=== PATIENT | male | born 1965 | race Caucasian/White ===

== ENCOUNTER 2020-01-16 13:48 | Outpatient (REF) | payer OTHER, SELFPAY ==
[2020-01-16 17:28] LABS: Influenza A PCR NEGATIVE (Negative); Influenza B PCR NEGATIVE (Negative); Resp Syncy Virus RNA Qual PCR NEGATIVE (Negative); SARS COV2 PCR INHOUSE POSITIVE (Negative)
== END 2020-01-16 13:49 | disposition home or self-care (01) ==
LOC: HO.LAB 13:48
PROVIDERS: Visit Provider Hospitalist
DX: B34.9 Viral infection, unspecified (principal)
CPT/HCPCS: 0241U

== ENCOUNTER 2020-11-29 13:38 | Outpatient (REF) | payer OTHER, SELFPAY ==
--- NOTE | ~2020-11-29 | CT_ITS ---
EXAMINATION: CT CHEST WITHOUT CONTRAST CLINICAL INFORMATION: History of shortness of breath. COMPARISON: None TECHNIQUE: Multidetector volumetric CT imaging of the chest was done. Axial MIP volume rendering provided. Sagittal and coronal reformatted images were obtained. This CT examination was performed using dose optimization techniques as appropriate, variously including the following: *Automated exposure control *Adjustment of mA and/or kV according to patient size (this includes techniques or standardized protocols for targeted exams where dose is matched to indication/reason for exam; i.e. extremities or head) *Use of iterative reconstruction technique DLP: 225 mGy-cm FINDINGS: LUNGS AND PLEURA: Trachea and central airways are widely patent and normal in caliber. No endobronchial nodule, mucous plugging or bronchiectasis. No interstitial or emphysematous lung disease. No pulmonary edema, consolidation or pleural effusion. Small solid, noncalcified nodule of < 0.3 cm average diameter is present in the lateral segment of the right middle lobe (image 299, series 7). Also, there is a small noncalcified nodular focus of approximately 0.2 cm average diameter in the left upper lobe (image 250, series 7). Based on Fleischner Society guidelines, chest CT follow-up is not recommended in a low-risk patient and is considered optional at 12 months in a high risk patient. CARDIOVASCULAR: The heart size is normal. No pericardial effusion. There is atherosclerotic calcification of coronary arteries. The pulmonary arteries and thoracic aorta are normal in caliber. No pericardial effusion. MEDIASTINUM AND LOWER NECK: Small sliding-type hiatal hernia. No mediastinal mass. Thyroid gland is unremarkable. LYMPHATICS: No axillary or internal mammary lymphadenopathy. No pathologic sized mediastinal or hilar lymph nodes. UPPER ABDOMEN: Mild, diffuse steatosis of the liver. Adrenal glands are normal. There is atrophy, partial fatty replacement of the pancreas. SKELETAL AND CHEST WALL: Multilevel osteophyte and/or enthesophyte formation of the spine. No suspicious bone lesions. CT/CT chest wo con IMPRESSION: * No specific source of shortness of breath is detected. No imaging evidence of pneumonia. No interstitial or emphysematous lung disease. * There are two small pulmonary nodules of < 0.3 cm average diameter. Chest CT follow-up is not recommended in a low-risk patient and may be considered optional at 12 months in a high risk patient. * Coronary artery atherosclerotic calcification is present (predominantly noted in the left anterior descending coronary artery). * Small sliding-type hiatal hernia of the stomach. * Diffuse hepatic steatosis.
== END 2020-11-29 13:39 | disposition home or self-care (01) ==
LOC: HO.CT 13:38
PROVIDERS: PCP Nurse Practitioner Family; Visit Provider Nurse Practitioner Family
DX: R06.02 Shortness of breath (principal); R06.00 Dyspnea, unspecified; Z86.16 Personal history of COVID-19
CPT/HCPCS: 71250

== ENCOUNTER → 2020-12-11 15:26 | Outpatient (BNVA) | payer OTHER, SELFPAY | PROVIDERS: PCP Nurse Practitioner Family; Visit Provider Internal Medicine ==

== ENCOUNTER 2021-01-01 13:56 | Outpatient (REF) | payer OTHER, SELFPAY ==
--- NOTE | 2021-01-01 17:31 | PFT_ITS ---
FLOWS: FEV1 90% of predicted at 3.30 L. FVC 78% of predicted at 3.71 L. FEV1 to FVC ratio of 0.89. No bronchodilator response. LUNG VOLUMES: Total lung capacity 91% of predicted at 6.21 L. Residual volume 105% of predicted at 2.21 L. Slow vital capacity 85% of predicted at 4.01 L. Expiratory reserve volume 29% of predicted at 0.41 L. Diffusion capacity is mildly decreased, diffusion capacity corrects to normal after adjustment for alveolar ventilation. IMPRESSION: No obstructive or restrictive ventilatory defect. No bronchodilator response. Decreased expiratory reserve volume suggests extrathoracic restriction likely secondary to abdominal obesity. Pablo Velez MD AP/MODL / [id number]
== END 2021-01-01 13:57 | disposition home or self-care (01) ==
LOC: HO.RESP 13:56
PROVIDERS: PCP Nurse Practitioner Family; Visit Provider Internal Medicine
DX: U09.9 Post COVID-19 condition, unspecified (principal); R05.9 Cough, unspecified; R06.02 Shortness of breath
CPT/HCPCS: 94060; 94727; 94729

== ENCOUNTER 2021-02-25 06:01 | Outpatient (REF) | payer OTHER, SELFPAY ==
[2021-02-25 11:59] LABS: MANUAL DIFF FLAG NO
[2021-02-25 12:06] LABS: Basophils Absolute Auto 0.1 X10*3/uL (0.0-0.2); Basophils Percent Auto 0.7 % (0-2); Eosinophils Absolute Auto 0.1 X10*3/uL (0.0-0.4); Eosinophils Percent Auto 1.6 % (0-4); Hematocrit 41.7 % (42.0-52.0); Imm Gran Abs Auto 0.02 X10*3/uL (0.00-0.03); Imm Gran Pct Auto 0.3 % (0.0-0.4); Lymphocytes Absolute Auto 3.5 X10*3/uL (1.2-4.9); Lymphocytes Percent Auto 46.1 % (20-40); Mean Corpuscular HGB Conc 33.6 g/dl (31.0-36.0); Mean Corpuscular Hemoglobin 29.5 pg (27.0-33.0); Mean Platelet Volume 11.5 fL (9.4-12.4); Monocytes Absolute Auto 0.7 X10*3/uL (0.1-1.2); Monocytes Percent Auto 8.5 % (2-11); Neutrophils Absolute Auto 3.3 x10*3/uL (2.0-8.3); Neutrophils Percent Auto 42.8 % (45-73); Platelet Count 263 X10*3/uL (160-400); Red Blood Count 4.74 X10*6/uL (4.60-5.80); Red Cell Distribution Width 12.6 % (11.0-16.0); White Blood Count 7.7 X10*3/uL (4.8-10.8)
[2021-02-25 12:07] LABS: Appearance Urine HAZY; Color Urine YELLOW; Glucose Urine UA NEG (NEG); Leukocyte Esterase Urine NEG (NEG); Nitrite Urine NEG (NEG); PH 5.5 (5.0-8.0); Specific Gravity - Urine 1.025 (1.005-1.025); Urine Blood NEG (NEG); Urine Ketones NEG (NEG); Urine Protein NEG (NEG-TRACE)
[2021-02-25 12:24] LABS: Alanine Aminotransferase 73 U/L (0-40); Albumin Level 4.2 g/dL (3.5-5.0); Alkaline Phosphatase 46 U/L (39-117); Anion Gap 13 (12-20); Aspartate Amino Transferase 32 U/L (5-37); Bilirubin Total < 0.2 mg/dL (0.0-1.0); Blood Urea Nitrogen 16 mg/dL (9-16); Calcium 9.2 mg/dL (8.4-10.2); Carbon Dioxide 24 mmol/L (22-29); Chloride 107 mmol/L (96-108); Cholesterol 190 mg/dL; Estimated Glomerular Filt Rate > 60; Glucose Fasting 105 mg/dL (60-99); HDL Cholesterol 37 mg/dL; LDL Cholesterol Calculated 112 mg/dl; Potassium 4.4 mmol/L (3.3-5.1); Sodium 140 mmol/L (135-145); Total Protein 7.3 g/dL (6.5-8.0); Triglycerides 205 mg/dL
[2021-02-25 12:34] LABS: Prostate Specific Antigen Scr 0.21 ng/mL (<0.05-4.0); TSH reflex Free T4 2.07 uIU/mL (0.32-4.0)
== END 2021-02-25 06:02 | disposition home or self-care (01) ==
LOC: HO.HMGCLDS 06:01
PROVIDERS: PCP Nurse Practitioner Family; Visit Provider Nurse Practitioner Family
DX: Z00.00 Encounter for general adult medical examination without abnormal findings (principal); Z12.5 Encounter for screening for malignant neoplasm of prostate
CPT/HCPCS: 36415; 80053; 80061; 81003; 84153; 84443; 85025

== ENCOUNTER 2021-02-28 11:00 | Outpatient (REF) | payer OTHER, SELFPAY | END 2021-02-28 11:01 | disposition home or self-care (01) | LOC: HO.LAB 11:00 | PROVIDERS: Visit Provider Internal Medicine | DX: Z13.89 Encounter for screening for other disorder (principal) ==

== ENCOUNTER → 2021-03-18 10:20 | Outpatient (REF) | payer OTHER, SELFPAY ==
--- NOTE | 2021-03-18 10:26 | HM_ITS ---
Conclusion: 1. Baseline of normal sinus rhythm with average heart of 88 beats per minute 2. No significant pauses or bradycardia noted 3. Frequent sinus tachycardia with 26% of time heart rate above 100 beats per minute 4. Total of 3496 PACs accounting for 0.56% total burden accounting for occasional PACs 5. No patient reported events 6. Patient was monitored for total period of 4 days and 22 hours MTDD
== END ==
LOC: HO.CARD 10:20
PROVIDERS: PCP Nurse Practitioner Family; Visit Provider Nurse Practitioner Family
DX: R00.2 Palpitations (principal)
CPT/HCPCS: 93242

== ENCOUNTER → 2021-06-10 09:50 | Outpatient (REF) | payer OTHER, SELFPAY ==
--- NOTE | 2021-06-10 11:27 | CA_ITS ---
Acquisition Time: 2021-06-10 10:17:41 Total Exercise Time: 00:06:10 Test Indications: SOB Medications: Protocol: DIXON Max HR: 142 BPM 86% of Pred: 165 BPM Max BP: 184/088 mmHG Max Work Load: 7.2 METS Exercise stress test wit exercise 6 min 10 sec of Dixon protocol, achieving 87% MPHR, with mild sob, no chest discomfort, with isolated PVC, with normotensive response to exercise, without EKG changes meeting criteria for ischemia. Test reviewed with Dr Villa. Referred By: Drew Tran Overread By: SUSAN QUIÑONES
== END ==
LOC: HO.CARD 09:50
PROVIDERS: Visit Provider Nurse Practitioner Family
DX: R06.02 Shortness of breath (principal)
CPT/HCPCS: 93017

== ENCOUNTER 2022-01-20 06:08 | Outpatient (REF) | payer OTHER, SELFPAY ==
[2022-01-20 11:37] LABS: Appearance Urine Clear; Color Urine Yellow; Glucose Urine UA Negative (Negative); Leukocyte Esterase Urine Negative (Negative); Nitrite Urine Negative (Negative); PH 5.5 (5.0-9.0); Specific Gravity - Urine 1.025 (1.005-1.025); Urine Blood Negative (Negative); Urine Ketones Negative (Negative); Urine Protein Negative (Neg-Trace)
[2022-01-20 12:19] LABS: Alanine Aminotransferase 67 U/L (0-40); Albumin Level 4.4 g/dL (3.5-5.0); Alkaline Phosphatase 48 U/L (39-117); Anion Gap 12 (12-20); Aspartate Amino Transferase 32 U/L (5-37); Bilirubin Total 0.4 mg/dL (0.0-1.0); Blood Urea Nitrogen 18 mg/dL (9-16); Calcium 9.6 mg/dL (8.4-10.2); Carbon Dioxide 26 mmol/L (22-29); Chloride 106 mmol/L (96-108); Cholesterol 277 mg/dL; Estimated Glomerular Filt Rate > 60; Glucose Fasting 115 mg/dL (60-99); HDL Cholesterol 36 mg/dL; LDL Cholesterol Calculated 195 mg/dl; Potassium 4.7 mmol/L (3.3-5.1); Sodium 139 mmol/L (135-145); TSH reflex Free T4 1.91 uIU/mL (0.32-4.0); Total Protein 7.4 g/dL (6.5-8.0); Triglycerides 233 mg/dL
== END 2022-01-20 06:09 | disposition home or self-care (01) ==
LOC: HO.HMGCLDS 06:08
PROVIDERS: PCP Nurse Practitioner Family; Visit Provider Nurse Practitioner Family
DX: R06.02 Shortness of breath (principal)
CPT/HCPCS: 36415; 80053; 80061; 81003; 84443

== ENCOUNTER 2022-02-12 10:21 | Outpatient (REF) | payer OTHER, SELFPAY ==
--- NOTE | ~2022-02-12 | US_ITS ---
EXAMINATION: US ABDOMEN COMPLETE CLINICAL INFORMATION: Abnormal levels of other serum enzymes. COMPARISON: Ultrasound abdomen 05/18/2019 and 03/23/2008. TECHNIQUE: Real-time imaging of the abdominal viscera. Technically difficult study secondary to bowel gas. FINDINGS: PANCREAS: Obscured by overlying bowel gas. ABDOMINAL AORTA: The proximal, mid, and distal segments are normal in caliber. INFERIOR VENA CAVA: Visualized portions are normal. LIVER: There is some diffuse increased echogenicity of the liver consistent with fatty infiltration. No focal hepatic lesion. There is no intrahepatic biliary duct dilatation seen. GALLBLADDER: Normal. The gallbladder is physiologically distended without evidence of stones, sludge, polyps, wall thickening or pericholecystic fluid. COMMON BILE DUCT: Normal in caliber measuring 0.3 cm in diameter. RIGHT KIDNEY: Normal. No hydronephrosis. No renal calculi or focal parenchymal lesions. The kidney measures 11.3 cm in maximum dimension. LEFT KIDNEY: Normal. No hydronephrosis. No renal calculi or focal parenchymal lesions. The kidney measures 11.7 cm in maximum dimension. SPLEEN: Normal. The spleen measures 11.0 cm in maximum dimension. FREE FLUID: None. US/US abdomen complete IMPRESSION: Findings consistent with fatty infiltration of the liver.
[2022-02-12 12:26] LABS: HBS Num1 0.77 mIU/mL (0-7.99); HBc Num1 0.09 S/CO (0.00-0.79); HBsAGNum1 0.37 S/CO (0.00-0.99); Hepatitis A Antibody IgM 0.16 Index (0-0.79); Hepatitis B Core Antibody Nonreactive (Nonreactive); Hepatitis B Surface Antigen Negative (Negative); ~HepC Num1 0.06 S/CO (0.00-0.79); ~Hepatitis A Antibody IgM Nonreactive (Nonreactive); ~Hepatitis B Surface Antibody NONREACTIVE (Nonreactive); ~Hepatitis C Antibody Nonreactive (Nonreactive)
[2022-02-12 12:38] LABS: Alanine Aminotransferase 95 U/L (0-40); Albumin Level 4.7 g/dL (3.5-5.0); Alkaline Phosphatase 48 U/L (39-117); Anion Gap 11 (12-20); Aspartate Amino Transferase 56 U/L (5-37); Bilirubin Total 0.6 mg/dL (0.0-1.0); Blood Urea Nitrogen 13 mg/dL (9-16); Calcium 9.5 mg/dL (8.4-10.2); Carbon Dioxide 30 mmol/L (22-29); Chloride 101 mmol/L (96-108); Cholesterol 223 mg/dL; Estimated Glomerular Filt Rate > 60; Glucose Fasting 96 mg/dL (60-99); HDL Cholesterol 40 mg/dL; LDL Cholesterol Calculated 138 mg/dl; Potassium 4.8 mmol/L (3.3-5.1); Prostate Specific Antigen Scr 0.21 ng/mL (<0.05-4.0); Sodium 137 mmol/L (135-145); Total Protein 7.6 g/dL (6.5-8.0); Triglycerides 229 mg/dL
== END 2022-02-12 10:22 | disposition home or self-care (01) ==
LOC: HO.HMGCX 10:21
PROVIDERS: PCP Nurse Practitioner Family; Visit Provider Nurse Practitioner Family
DX: Z12.5 Encounter for screening for malignant neoplasm of prostate (principal); R74.8 Abnormal levels of other serum enzymes; R74.01 Elevation of levels of liver transaminase levels; E78.5 Hyperlipidemia, unspecified
CPT/HCPCS: 36415; 76700; 80053; 80061; 84153; 86704; 86706; 86709; 86803; 87340

== ENCOUNTER 2022-07-02 07:55 | Outpatient (REF) | payer OTHER, SELFPAY ==
[2022-07-02 12:57] LABS: Alanine Aminotransferase 101 U/L (0-40); Albumin Level 4.2 g/dL (3.5-5.0); Alkaline Phosphatase 41 U/L (39-117); Anion Gap 11 (12-20); Aspartate Amino Transferase 52 U/L (5-37); Bilirubin Total 0.5 mg/dL (0.0-1.0); Blood Urea Nitrogen 15 mg/dL (9-16); Calcium 8.7 mg/dL (8.4-10.2); Carbon Dioxide 25 mmol/L (22-29); Chloride 107 mmol/L (96-108); Cholesterol 215 mg/dL; Estimated Glomerular Filt Rate > 60; Glucose Fasting 111 mg/dL (60-99); HDL Cholesterol 37 mg/dL; LDL Cholesterol Calculated 149 mg/dl; Potassium 4.5 mmol/L (3.3-5.1); Sodium 138 mmol/L (135-145); Total Protein 6.8 g/dL (6.5-8.0); Triglycerides 146 mg/dL
== END 2022-07-02 07:56 | disposition home or self-care (01) ==
LOC: HO.HMGCLDS 07:55
PROVIDERS: PCP Nurse Practitioner Family; Visit Provider Nurse Practitioner Family
DX: E78.5 Hyperlipidemia, unspecified (principal)
CPT/HCPCS: 36415; 80053; 80061

== ENCOUNTER 2023-01-28 07:28 | Outpatient (AMB) | payer OTHER, SELFPAY ==
--- NOTE | 2023-01-28 07:36 | MHC.PC.OV ---
Vital Signs 01/28/23 07:44 Height 5 ft 9 in Weight 251 lb BMI 37.1 BP 130/80 Blood Pressure Location Rt brachial Position Sitting Pulse 82 Pulse Source Pulse Oximeter Pulse Oximetry (%) 98 Oxygen Delivery Method Room Air Intake Visit Reasons: PE Intake Note: Patient here for physical exam. Allergies lisinopril Allergy (Unknown, Verified 01/28/23 07:44) left arm tingly Medication List - Last Reconciled 01/28/23 by ABI Feliz albuterol sulfate 90 mcg/actuation 1 puff inhalation QID PRN ezetimibe 10 mg PO DAILY flu vacc [id number] 6mos up(PF) mL IM dpje-dzym-qajob-qkcp-vh-wdp-mt 500-100 mg caps PO multivitamin 1 tab PO DAILY omeprazole 20 mg PO DAILY 90 days Tobacco use date assessed: 07/23/22 Dental Screening Dental Screen Date: 01/28/23 Did you have a dental visit in the last 12 months?: Yes Did you have a dental problem in the last 6 months where you did not have access to dental care?: No Was dental information given to patient?: Patient has dentist HPI PE HPI Details Pt is here for a PE. Will order labs. Colon screen is up to date. Due for PSA, will order. Denies dribbling with urination, weak stream, and frequent nocturia. Pt c/o anxiety. He reports that this is surrounding his job. Pt would not like to start a medication right now. Denies any SI and HI. Pt reports ongoing intermittent shortness of breath. He reports that this started after he had COVID and is mostly with exertion. He has had PFT testing in the past, see results, and stress test. ? post-COVID syndrome. will try a albuterol inhaler and recommended losing weight PFSH Medical History Cough Post covid-19 condition, unspecified Social History Housing: House Patient Tobacco Use Status: Never used Tobacco e-Cigarette/Vaping Use: Never Used Second Hand Smoke Exposure: Yes service: No Current occupational status: employed Current occupation: [employer] Current occupational exposures/hazards: Yes Cognitive needs: No Hearing needs: No Vision needs: No Questionnaire Thrive Questionnaire Date Thrive assessed: 02/18/21 I am a: Patient What is your living situation today?: I have a steady place to live Within the past 12 months, did the food you bought not last and you didn't have the money to get more?: Never true Within the past 12 months, did you worry whether your food would run out before you got money to buy more?: Never true AUDIT C Alcohol Use Questionnaire (AUDIT-C) 1. How often do you have a drink containing alcohol?: Monthly or less 2. How many drinks containing alcohol do you have on a typical day when you are drinking?: 1 or 2 3. How often do you have six or more drinks on one occasion?: Never Total Score: 1 FARHAD-7 AMB Questionnaire FARHAD-7 Date FARHAD - 7 assessed: 01/28/23 Feeling nervous, anxious, or on edge: 0 = Not at all Not being able to stop or control worryin = Not at all Worrying too much about different things: 0 = Not at all Trouble relaxin = Not at all Being so restless that it is hard to sit still: 1 = Several days Becoming easily annoyed or irritable: 0 = Not at all Feeling afraid as if something awful might happen: 0 = Not at all Total FARHAD-7 score (0-4 normal; 5-9 mild; 10-14 moderate; 15-21 severe): 1 Source: Developed by Drs. Marcial Braxton, Felicia Rubalcava, Armando Ennis and colleagues, with an educational jordi from [employer]. Review of Systems Const Denies chills and Denies fever(s) Eyes Denies blurry vision ENT Denies vertigo, Denies dizziness and Denies sore throat Card Denies chest pain at rest, Denies chest pain with activity, Denies diaphoresis, Reports dyspnea and Reports dyspnea on exertion Resp Denies cough, Reports dyspnea, Reports dyspnea on exertion and Denies wheezing GI Denies abdominal pain, Denies melena, Denies hematochezia, Denies constipation, Denies diarrhea and Denies loose stools Denies hematuria Musc Denies numbness and Denies tingling Skin/Breast Denies lesions Neuro Denies vertigo, Denies dizziness, Denies numbness and Denies tingling Psych Reports anxiety, Denies depression, Denies homicidal ideation, Denies suicidal ideation and Denies other (substance abuse) Aller/Immun Denies wheezing Physical exam (Primary Care) Vital Signs: Last Vital Signs Pulse 82 01/28/23 07:44 BP 130/80 01/28/23 07:44 Pulse Ox 98 01/28/23 07:44 Oxygen Delivery Method Room Air 01/28/23 07:44 BMI result Body Mass Index 37.1 Tobacco/Smoking Status: Tobacco use Status Tobacco use date assessed 07/23/22 01/28/23 07:38 Patient Tobacco Use Status Never used Tobacco 01/28/23 07:38 e-Cigarette/Vaping Use Never Used 01/28/23 07:38 Thrive Assessment: Date of Thrive Assessment Date Thrive assessed 02/18/21 01/28/23 07:38 Const General: cooperative Nutritional Appearance: obese Orientation/consciousness: patient oriented x3 HENMT Head: Yes normal to inspection, Yes normocephalic and Yes atraumatic Ears: TM's normal bilaterally Eyes General: appearance normal, both eyes and all related structures Alignment and Position: alignment normal and position normal Neck Neck: Yes normal visual inspection and Yes no lymphadenopathy Thyroid: Thyroid normal Resp Effort & Inspection: normal respiratory effort Auscultation: clear to auscultation bilaterally Cardio Rate: regular rate Rhythm: regular rhythm Heart sounds: S1 normal heart sound present, S2 normal heart sound present and no murmurs GI Palpation (GI): Soft to palpation and nontender Auscultation: normal bowel sounds Male General Exam: Yes normal external exam Penis: normal penis Scrotum: scrotum normal, testes descended bilaterally and no inguinal hernias Testes: no testicular mass Skin Rashes: no rashes Neuro General: patient oriented x3, moves all extremities, no focal motor deficits and deep tendon reflexes 2+ bilaterally Romberg Test: Negative Psych Appearance: grossly normal Mental Status: mental status grossly normal Speech and movement: Normal speech and movement present Affect: normal affect Attitude: cooperative Thought process: Normal thought process present Thought content: Normal thought content present Insight: Good insight present (Psych) Judgement: Good judgement present (Psych) Assessment and Plan Assessment & Plan (1) Physical exam: Code(s): Z00.00 - Encounter for general adult medical examination without abnormal findings Plan: Labs ordered (2) Screening PSA (prostate specific antigen): Code(s): Z12.5 - Encounter for screening for malignant neoplasm of prostate Plan: PSA ordered (3) 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 Scribed for ABI Hough by Denita Wiggins medical accounts receivable specialist, on 01/28/2023 at 07:50 EST. Orders: Orders Complete Blood Count Auto Diff Today Z00.00 - Encounter for general adult medical examination without abnormal findings Comprehensive [place]. Panel Fast Today Z00.00 - Encounter for general adult medical examination without abnormal findings TSH reflex Free T4 Today Z00.00 - Encounter for general adult medical examination without abnormal findings UA CC w/rflx Micro + Cult Today Z00.00 - Encounter for general adult medical examination without abnormal findings Lipid Panel Today Z00.00 - Encounter for general adult medical examination without abnormal findings Prostate Specific Antigen Scr Today Z12.5 - Encounter for screening for malignant neoplasm of prostate Medications: New albuterol sulfate 90 mcg/actuation 1 puff inhalation QID PRN 8.5 grams 1RF shortness of breath or wheezing Coding Level of Care Code Est Pt Prev Care 40-64y(26958) Diagnoses Physical exam Z00.00 Screening PSA (prostate specific antigen) Z12.5 Post-COVID syndrome U09.9
[2023-01-28 07:44] VITALS: BP 130/80; PULSE 82; O2SAT 98; BMI 37.1
== END 2023-01-28 08:42 | disposition home or self-care (01) ==
PROVIDERS: PCP Nurse Practitioner Family; Visit Provider Nurse Practitioner Family
DX: Z00.00 Encounter for general adult medical examination without abnormal findings (principal); Z12.5 Encounter for screening for malignant neoplasm of prostate; U09.9 Post COVID-19 condition, unspecified; Z13.9 Encounter for screening, unspecified
CPT/HCPCS: 83036; 99396

== ENCOUNTER 2023-07-22 06:24 | Outpatient (REF) | payer OTHER, SELFPAY ==
[2023-07-22 10:38] LABS: MANUAL DIFF FLAG NO
[2023-07-22 10:41] LABS: Appearance Urine Clear; Color Urine Yellow; Glucose Urine UA Negative (Negative); Leukocyte Esterase Urine Negative (Negative); Nitrite Urine Negative (Negative); PH 5.5 (5.0-9.0); Urine Blood Negative (Negative); Urine Ketones Negative (Negative); Urine Protein Negative (Neg-Trace)
[2023-07-22 10:42] LABS: Basophils Percent Auto 0.7 % (0-2); Eosinophils Absolute Auto 0.1 X10*3/uL (0.0-0.4); Eosinophils Percent Auto 1.4 % (0-4); Hematocrit 42.3 % (42.0-52.0); Hemoglobin 14.5 g/dl (14.0-18.0); Imm Gran Abs Auto 0.01 X10*3/uL (0.00-0.03); Imm Gran Pct Auto 0.2 % (0.0-0.4); Lymphocytes Absolute Auto 3.2 X10*3/uL (1.2-4.9); Lymphocytes Percent Auto 55.5 % (20-40); Mean Corpuscular HGB Conc 34.3 g/dl (31.0-36.0); Mean Corpuscular Hemoglobin 29.8 pg (27.0-33.0); Monocytes Absolute Auto 0.5 X10*3/uL (0.1-1.2); Monocytes Percent Auto 9.4 % (2-11); Neutrophils Absolute Auto 1.9 x10*3/uL (2.0-8.3); Neutrophils Percent Auto 32.8 % (45-73); Platelet Count 217 X10*3/uL (160-400); Red Blood Count 4.86 X10*6/uL (4.60-5.80); Red Cell Distribution Width 13.2 % (11.0-16.0); White Blood Count 5.8 X10*3/uL (4.8-10.8)
[2023-07-22 11:11] LABS: Prostate Specific Antigen Scr 1.09 ng/mL (<0.05-4.0)
[2023-07-22 11:12] LABS: Alanine Aminotransferase 129 U/L (0-40); Albumin Level 4.3 g/dL (3.5-5.0); Alkaline Phosphatase 40 U/L (39-117); Anion Gap 13 (12-20); Aspartate Amino Transferase 65 U/L (5-37); Bilirubin Total 0.4 mg/dL (0.0-1.0); Blood Urea Nitrogen 18 mg/dL (9-16); Calcium 9.4 mg/dL (8.4-10.2); Carbon Dioxide 24 mmol/L (22-29); Chloride 104 mmol/L (96-108); Cholesterol 233 mg/dL (<200); Estimated Glomerular Filt Rate > 60; Glucose Fasting 111 mg/dL (60-99); HDL Cholesterol 41 mg/dL (>40); LDL Cholesterol Calculated 157 mg/dL (<100); Potassium 4.4 mmol/L (3.3-5.1); Sodium 137 mmol/L (135-145); Total Protein 7.4 g/dL (6.5-8.0); Triglycerides 177 mg/dL (<150)
[2023-07-22 11:20] LABS: TSH reflex Free T4 1.83 uIU/mL (0.32-4.0)
== END 2023-07-22 06:25 | disposition home or self-care (01) ==
LOC: HO.HMGCLDS 06:24
PROVIDERS: PCP Nurse Practitioner Family; Visit Provider Nurse Practitioner Family
DX: Z00.00 Encounter for general adult medical examination without abnormal findings (principal); Z12.5 Encounter for screening for malignant neoplasm of prostate
CPT/HCPCS: 36415; 80053; 80061; 81003; 84153; 84443; 85025

== ENCOUNTER 2023-07-29 10:52 | Outpatient (AMB) | payer OTHER, SELFPAY ==
--- NOTE | 2023-07-29 10:55 | MHC.PC.OV ---
Vital Signs 07/29/23 10:57 Height 5 ft 9 in Weight 243 lb BMI 35.9 BP 130/82 Blood Pressure Location Rt brachial Position Sitting Pulse 75 Pulse Source Pulse Oximeter Pulse Oximetry (%) 96 Intake Visit Reasons: 6 month fu Intake Note: pt is here for 6 month follow up Care Assistant Required: No Accompanied by: Self / Same As Patient Allergies lisinopril Allergy (Unknown, Verified 07/29/23 10:58) left arm tingly Medication List - Last Reconciled 07/29/23 by Drew Tran, SOLAR BUSINESS DEVELOPER- albuterol sulfate 90 mcg/actuation 1 puff inhalation QID PRN ezetimibe 10 mg PO DAILY qwgi-oqtu-vzuqf-gqgg-bd-dub-mt 500-100 mg caps PO multivitamin 1 tab PO DAILY omeprazole 20 mg PO DAILY 90 days Tobacco use date assessed: 07/29/23 Dental Screening Dental Screen Date: 07/29/23 Did you have a dental visit in the last 12 months?: Yes Did you have a dental problem in the last 6 months where you did not have access to dental care?: No Was dental information given to patient?: Patient has dentist HPI 6 month fu HPI Details Pt reports shortness of breath with activity. He has been seen by cardiology/pulmonary for this. Pt had had COVID 3 times, last was approximately 1.5 years ago. Pt reports developing a cough and shortness of breath after having COVID the last time. He reports a dry cough and shortness of breath with light exertion. Previous PFT testing showed: all maneuvers were performed with good effort. Pt unable to meet ATS standard for pre FVC maneuvers and DLCO maneuvers despite several attempts- took best efforts. Pt had a previous chest CT which showed no specific source of shortness of breath is detected. No imaging evidence of pneumonia. No interstitial or emphysematous lung disease. Will order repeat chest CT. Denies fever, chills, and chest pain. Pt is obese. He reports that his diet is very poor. I do believe a lot of his shortness of breath with exertion is related to weight. Refuses to see a machine i engraver, he knows his diet is poor. Hx of coronary artery calcification. Will contact pt's roller skate assembler to see if he qualifies for Repatha. Pt's liver enzymes were elevated. Hx of fatty liver. Pt does not drink alcohol, likely due to poor diet and lack of exercise. Educated pt on the dangers of this. NOTE: Last A1C in chart was 8.6, ? if this was entered for the wrong pt. Pt's A1C today is 6.2. PT denies any CP at any point. [facility] Medical History (Updated 07/29/23 @ 11:47 by ABI Feliz) Coronary artery calcification Cough Post covid-19 condition, unspecified Surgical History No pertinent past surgical history Social History Housing: House Patient Tobacco Use Status: Never used Tobacco e-Cigarette/Vaping Use: Never Used Second Hand Smoke Exposure: Yes service: No Current occupational status: employed Current occupation: [employer] Current occupational exposures/hazards: Yes Cognitive needs: No Hearing needs: No Vision needs: No Questionnaire PHQ-9 Over the last 2 weeks, how often have you been bothered by any of the following problems? 1. Little interest or pleasure in doing things: not at all 2. Feeling down, depressed, or hopeless: not at all 3. Trouble falling or staying asleep, or sleeping too much: more than half the days 4. Feeling tired or having little energy: not at all 5. Poor appetite or overeating: nearly every day 6. Feeling bad about yourself - or that you are a failure or have let yourself or your family down: not at all 7. Trouble concentrating on things, such as reading the newspaper or watching television: not at all 8. Moving or speaking so slowly that other people could have noticed. Or the opposite - being so fidgety or restless that you have been moving around a lot more than usual: not at all 9. Thoughts that you would be better off or of hurting yourself in some way: not at all Total score: 5 Depression Screening Interpretation: Negative Depression Screening Done: Yes 57531 - PHQ-9 Billing: Yes Source: Developed by Drs. Marcial Braxton, Felicia Rubalcava, Armando Ennis and colleagues, with an educational jordi from [employer]. Thrive Questionnaire Date Thrive assessed: 07/29/23 I am a: Patient What is your living situation today?: I have a steady place to live Within the past 12 months, did the food you bought not last and you didn't have the money to get more?: Never true Within the past 12 months, did you worry whether your food would run out before you got money to buy more?: Never true Do you have trouble paying for medicines?: No Do you have trouble getting transportation to medical appointments?: No Do you have trouble paying your heating and electricity bill?: No Do you have trouble taking care of your child, family member or friend?: No Do you have trouble with day-to-day activities such as bathing, preparing meals, shopping, managing finances, etc.?: No Are you currently unemployed and looking for a job?: No Are you interested in more education?: No Please select the resources that you would like help with: None Currently or been in a relationship where the following occur: no concerns reported THRIVE Score: 0 AUDIT C Alcohol Use Questionnaire (AUDIT-C) 1. How often do you have a drink containing alcohol?: Monthly or less 2. How many drinks containing alcohol do you have on a typical day when you are drinking?: 1 or 2 3. How often do you have six or more drinks on one occasion?: Never Total Score: 1 Score Reviewed/Action Taken: Yes FARHAD-7 AMB Questionnaire FARHAD-7 Date FARHAD - 7 assessed: 07/29/23 Feeling nervous, anxious, or on edge: 0 = Not at all Not being able to stop or control worryin = Not at all Worrying too much about different things: 0 = Not at all Trouble relaxin = Not at all Being so restless that it is hard to sit still: 1 = Several days Becoming easily annoyed or irritable: 0 = Not at all Feeling afraid as if something awful might happen: 0 = Not at all Total FARHAD-7 score (0-4 normal; 5-9 mild; 10-14 moderate; 15-21 severe): 1 Source: Developed by Drs. Marcial Braxton, Felicia Rubalcava, Armando Ennis and colleagues, with an educational jordi from [employer]. FARHAD-7 Assessment Billing FARHAD-7 Assessment Tool: FARHAD-7 Assessment 41303 Review of Systems Const Reports as per HPI Physical exam (Primary Care) Vital Signs: Last Vital Signs Pulse 75 07/29/23 10:57 BP 130/82 07/29/23 10:57 Pulse Ox 96 07/29/23 10:57 BMI result Body Mass Index 35.9 Tobacco/Smoking Status: Tobacco use Status Tobacco use date assessed 07/29/23 07/29/23 10:59 Patient Tobacco Use Status Never used Tobacco 07/29/23 10:56 e-Cigarette/Vaping Use Never Used 07/29/23 10:56 PHQ-9: PHQ-9 Score PHQ-9: Total score 5 07/29/23 10:59 Depression Screening Interpretation: Negative Thrive Assessment: Date of Thrive Assessment Date Thrive assessed 07/29/23 07/29/23 10:59 Currently or been in a relationship where the following occur: no concerns reported Const General: cooperative Nutritional Appearance: obese Orientation/consciousness: patient oriented x3 Resp Effort & Inspection: normal respiratory effort Auscultation: clear to auscultation bilaterally Cardio Rate: regular rate Rhythm: regular rhythm Heart sounds: S1 normal heart sound present and S2 normal heart sound present Bruits: no carotid bruits Neuro General: patient oriented x3 Extrem Right lower extremity: no edema Left lower extremity: no edema Psych Appearance: grossly normal Mental Status: mental status grossly normal Speech and movement: Normal speech and movement present Affect: normal affect Attitude: cooperative Thought process: Normal thought process present Thought content: Normal thought content present Insight: Good insight present (Psych) Judgement: Good judgement present (Psych) Results AMB Hemoglobin A1c AMB Hemoglobin A1c 6.2 % Last Edit by Stanton Swann CMA on 07/29/23 11:25 Assessment and Plan Assessment & Plan (1) SOB (shortness of breath): Code(s): R06.02 - Shortness of breath Plan: Chest CT ordered (2) Post-COVID syndrome: Code(s): U09.9 - Post COVID-19 condition, unspecified Plan: Chest CT ordered (3) Elevated liver enzymes: Code(s): R74.8 - Abnormal levels of other serum enzymes Plan: Educated pt on diet and exercise (4) Dyslipidemia: Code(s): E78.5 - Hyperlipidemia, unspecified Plan: Reaching out to cardiology to see if pt qualifies for repatha (5) Coronary artery calcification: Code(s): I25.10 - Atherosclerotic heart disease of [place] coronary artery without angina pectoris; I25.84 - Coronary atherosclerosis due to calcified coronary lesion Plan: Reaching out to cardiology to see if pt qualifies for repatha Plan The patient agreed to the use of a biomedical engineering professor for this encounter. Scribed for CHRIS Hough- by Denita Wiggins biomedical engineering professor, on 07/29/2023 at 11:15 EST. Orders: Orders AMB Hemoglobin A1c Today Z13.9 - Encounter for screening, unspecified CT chest wo IV con Today R06.02 - Shortness of breath, U09.9 - Post COVID-19 condition, unspecified Medications: New pravastatin 10 mg PO BEDTIME 90 tabs 0RF coenzyme Q10 10 mg PO TID 90 caps 0RF Coding Level of Care Code Est Pt Level 4 (27964) Diagnoses SOB (shortness of breath) R06.02 Post-COVID syndrome U09.9 Elevated liver enzymes R74.8 Dyslipidemia E78.5 Coronary artery calcification I25.10; I25.84 Additional Codes FARHAD-7 Assessment Billing - FARHAD-7 Assessment Tool: FARHAD-7 Assessment 38270 ([id number])
[2023-07-29 10:57] VITALS: BP 130/82; PULSE 75; O2SAT 96; BMI 35.9
== END 2023-07-29 11:47 | disposition home or self-care (01) ==
PROVIDERS: PCP Nurse Practitioner Family; Visit Provider Nurse Practitioner Family
DX: R06.02 Shortness of breath (principal); U09.9 Post COVID-19 condition, unspecified; R74.8 Abnormal levels of other serum enzymes; E78.5 Hyperlipidemia, unspecified; I25.10 Atherosclerotic heart disease of native coronary artery without angina pectoris; I25.84 Coronary atherosclerosis due to calcified coronary lesion
CPT/HCPCS: 83036; 99214

== ENCOUNTER 2023-09-23 13:26 | Outpatient (REF) | payer OTHER, SELFPAY ==
--- NOTE | ~2023-09-23 | XR_ITS ---
EXAMINATION: XR CHEST 2 VIEWS CLINICAL INFORMATION: Status-post Covid-19 infection. COMPARISON: CT chest dated 11/29/2020. TECHNIQUE: Frontal and lateral views of the chest were obtained. FINDINGS: The heart, great vessels, pulmonary vasculature and mediastinum are normal. The lungs show no focal infiltrate, effusion or pneumothorax. There is no acute osseous abnormality. There is multi-level thoracic spondylosis. There is mild calcific tendinitis of the left rotator cuff. XR/XR chest 2V IMPRESSION: No active cardiopulmonary disease. Electronically signed by: Drew Shaffer MD 10/21/2023 08:57 PM EDT
== END 2023-09-23 13:27 | disposition home or self-care (01) ==
LOC: HO.HMGCX 13:26
PROVIDERS: PCP Nurse Practitioner Family; Visit Provider Nurse Practitioner Family
DX: R06.02 Shortness of breath (principal); U09.9 Post COVID-19 condition, unspecified
CPT/HCPCS: 71046

== ENCOUNTER 2024-02-15 10:49 | Outpatient (AMB) | payer OTHER, SELFPAY ==
[2024-02-15 10:53] VITALS: BP 142/90; PULSE 83; O2SAT 94; BMI 37.5
--- NOTE | 2024-02-15 10:53 | A.OFFPC_ITS ---
Vital Signs 02/15/24 10:53 02/15/24 11:26 Height 5 ft 9 in Weight 254 lb BMI 37.5 BP 142/90 H 130/86 Blood Pressure Location Rt brachial Lt brachial Position Sitting Sitting Pulse 83 Pulse Source Pulse Oximeter Pulse Oximetry (%) 94 Intake Visit Reasons: Annual PE Intake Note: pt is here for PE Table Setter Required: No Accompanied by: Self / Same As Patient Allergies lisinopril Allergy (Unknown, Verified 02/15/24 10:54) left arm tingly Medication List - Last Reconciled 02/15/24 by Drew Tran, ELECTRIC FORK OPERATOR- albuterol sulfate 90 mcg/actuation 1 puff inhalation QID PRN coenzyme Q10 10 mg PO TID ezetimibe 10 mg PO DAILY glgb-owxd-urqgk-xwnl-rb-tfy-mt 500-100 mg caps PO multivitamin 1 tab PO DAILY omeprazole 20 mg PO DAILY 90 days pravastatin 10 mg PO BEDTIME Tobacco use date assessed: 07/29/23 Dental Screening Dental Screen Date: 07/29/23 HPI Annual PE HPI Details History of Present Illness The patient is a 58-year-old male presenting with the complaints of bloating and a persistent cough. The bloating is ongoing and the patient reports it as a persistent issue. There is no detailed information on the onset, but there is a concern requiring investigation, possibly relating to dietary causes. In conjunction with these symptoms, he experiences shortness of breath after heavy exertion, which he perceives as of lesser concern. Additionally, the patient reports a lingering cough, most pronounced during the spring, which suggests an allergic component given its seasonal nature. No interventions have been applied as he prefers to wait until closer to spring for antihistamine therapy. He denies experiencing chest pain, numbness, tingling, headache, blurred vision, suicidalization, or homicidalization. The patient reports these symptoms within the context of morbid obesity. There was no mention of the cough or bloating impacting his daily activities or sleep. A referral for a colonoscopy has been scheduled as the patient?s screening is up to date, but due again in March. The patient has not reported any emergent interventions applied to manage his conditions. Refused RULA today Health Maintenance - Colonoscopy scheduled for March. - Discussion of potential for endoscopy with biopsy to address ongoing bloating symptoms. - Recommendation to discuss weight manag ement strategies due to morbid obesity. Social History - Level of activity and exercise: the pa tient should work on these aspects to assist in managing obesity and associated symptoms. Review of Systems - Gastrointestinal: Reports persistent b loating. - Respiratory: Denies urinary symptoms, denies chest pain; reports shortness of breath after heavy exertion. - Neurological: Denies numbness, tinglin g, headache, blurred vision. - Psychiatric: Denies suicidal ideation and homicidal thoughts. Physical Exam General: Cooperative, healthy appearing, comfortable, no acute distress and well developed, morbidly obese Orientation: Patient oriented x3 Limitations: No limitations Head: Normal to inspection Ears: Hearing grossly normal bilaterally Nose: Normal external nose present Face and sinus: Normal facial exam Eyes: Appearance normal, both eyes and all related structures Neck: Normal visual inspection and Yes full ROM Respiratory: Normal respiratory effort and able to speak in complete sentences. Clear to auscultation bilaterally. Reports a lingering cough, mostly worse in the spring, likely allergy-related. Cardiovascular: Regular rate and rhythm. Normal S1 and S2 GI: Normal to inspection. Soft to palpation and nontender. Reports ongoing bloating. Skin: No rashes or lesions noted Neuro: Patient oriented x3 Extremities: Normal to inspection. No edema noted. Results Plan - A referral for a colonoscopy is schedu led in March for routine screening. - Consider celiac testing due to reporte d bloating; to be arranged during physical exam labs. - Suggest discussion with Gastroenterolo gist regarding potential endoscopy with biopsy for assessment of bloating. - Monitor respiratory symptoms, administ er antihistamines for allergy management closer to springtime. - Recommend weight management strategies due to obesity to improve overall health and respiratory function. - Encourage follow-up for persistent cou gh if it does not resolve after recommended management steps. Patient was informed and verbally consented to the use of an ambient scribe for clinic note documentation during this visit. Discussion Notes I explained to the patient the importance of scheduling the colonoscopy as it is a necessary screening tool for colorectal concerns. We discussed the potential need for endoscopy to further investigate his persistent bloating symptoms, which could be indicative of underlying gastrointestinal issues. I highlighted the role of weight loss in managing his obesity-related shortness of breath. I advised on the use of antihistamines for seasonal respiratory allergies, which the patient opted to commence closer to springtime given the cough has subsided during the current period. He understands the need for ongoing follow-up for his symptoms as well as the importance of planning any necessary diagnostic procedures. Patient Instructions - Attend the colonoscopy appointment in March. - Seek consultation with a Gastroenterol ogist for possible endoscopy with biopsy for bloating. - Start antihistamines as allergy sympto ms increase, likely by spring. - Focus on weight loss strategies to ass ist with breathing issues. - Follow up if respiratory symptoms wors en or if bloating persists. [facility] Medical History Coronary artery calcification Cough Post covid-19 condition, unspecified Surgical History No pertinent past surgical history Social History Housing: House Patient Tobacco Use Status: Never used Tobacco e-Cigarette/Vaping Use: Never Used Second Hand Smoke Exposure: Yes service: No Current occupational status: employed Current occupation: [employer] Current occupational exposures/hazards: Yes Cognitive needs: No Hearing needs: No Vision needs: No Questionnaire PHQ-9 Over the last 2 weeks, how often have you been bothered by any of the following problems? 1. Little interest or pleasure in doing things: not at all 2. Feeling down, depressed, or hopeless: not at all 3. Trouble falling or staying asleep, or sleeping too much: more than half the days 4. Feeling tired or having little energy: not at all 5. Poor appetite or overeating: nearly every day 6. Feeling bad about yourself - or that you are a failure or have let yourself or your family down: not at all 7. Trouble concentrating on things, such as reading the newspaper or watching television: not at all 8. Moving or speaking so slowly that other people could have noticed. Or the opposite - being so fidgety or restless that you have been moving around a lot more than usual: not at all 9. Thoughts that you would be better off or of hurting yourself in some way: not at all Total score: 5 Depression Screening Interpretation: Negative Depression Screening Done: Yes 73003 - PHQ-9 Billing: Yes Source: Developed by Felicia CalleW. Khadar, Armando Ennis and colleagues, with an educational jordi from [employer]. Thrive Questionnaire Date Thrive assessed: 02/08/24 I am a: Patient What is your living situation today?: I have a steady place to live Within the past 12 months, did you worry whether your food would run out before you got money to buy more?: Never true Do you have trouble paying for medicines?: No Do you have trouble getting transportation to medical appointments?: No Do you have trouble paying your heating and electricity bill?: No Do you have trouble taking care of your child, family member or friend?: No Do you have trouble with day-to-day activities such as bathing, preparing meals, shopping, managing finances, etc.?: No Are you currently unemployed and looking for a job?: No Are you interested in more education?: No Please select the resources that you would like help with: None THRIVE Score: 0 AUDIT C Alcohol Use Questionnaire (AUDIT-C) 1. How often do you have a drink containing alcohol?: Monthly or less 2. How many drinks containing alcohol do you have on a typical day when you are drinking?: 1 or 2 3. How often do you have six or more drinks on one occasion?: Never Total Score: 1 Score Reviewed/Action Taken: Yes FARHAD-7 AMB Questionnaire FARHAD-7 Date FARHAD - 7 assessed: 02/15/24 Feeling nervous, anxious, or on edge: 0 = Not at all Not being able to stop or control worryin = Not at all Worrying too much about different things: 0 = Not at all Trouble relaxin = Not at all Being so restless that it is hard to sit still: 0 = Not at all Becoming easily annoyed or irritable: 0 = Not at all Feeling afraid as if something awful might happen: 0 = Not at all Total FARHAD-7 score (0-4 normal; 5-9 mild; 10-14 moderate; 15-21 severe): 0 Source: Developed by Drs. Marcial Braxton, Felicia Rubalcava, Armando Ennis and colleagues, with an educational jordi from [employer]. FARHAD-7 Assessment Billing FARHAD-7 Assessment Tool: FARHDA-7 Assessment 41937 Physical exam (Primary Care) Vital Signs: Last Vital Signs Pulse 83 12/30/24 10:53 BP 142/90 H 02/15/24 10:53 Pulse Ox 94 02/15/24 10:53 BMI result Body Mass Index 37.5 Tobacco/Smoking Status: Tobacco use Status Tobacco use date assessed 07/29/23 02/15/24 10:55 Patient Tobacco Use Status Never used Tobacco 02/15/24 10:55 e-Cigarette/Vaping Use Never Used 02/15/24 10:55 PHQ-9: PHQ-9 Score PHQ-9: Total score 5 02/15/24 11:09 Depression Screening Interpretation: Negative Thrive Assessment: Date of Thrive Assessment Date Thrive assessed 02/08/24 02/15/24 10:55 Coding Level of Care Code Est Pt Prev Care 40-64y(32346) Diagnoses Physical exam Z00.00 Screening PSA (prostate specific antigen) Z12.5 Screening for colon cancer Z12.11 Bloating R14.0 Additional Codes FARHAD-7 Assessment Billing - FARHAD-7 Assessment Tool: FARHAD-7 Assessment 60531 ([id number]) PHQ-9 - 76986 - PHQ-9 Billing: Yes ([id number]) Assessment & Plan Assessment & Plan (1) Physical exam: Code(s): Z00.00 - Encounter for general adult medical examination without abnormal findings Category: Medical (2) Screening PSA (prostate specific antigen): Code(s): Z12.5 - Encounter for screening for malignant neoplasm of prostate Category: Medical (3) Screening for colon cancer: Code(s): Z12.11 - Encounter for screening for malignant neoplasm of colon Category: Medical (4) Bloating: Code(s): R14.0 - Abdominal distension (gaseous) Category: Medical (5) Bloating: Code(s): R14.0 - Abdominal distension (gaseous) Category: Medical Plan . Orders: Orders UA CC w/rflx Micro + Cult Today Z00.00 - Encounter for general adult medical examination without abnormal findings Lipid Panel Today Z00.00 - Encounter for general adult medical examination without abnormal findings Prostate Specific Antigen Scr Today Z12.5 - Encounter for screening for malignant neoplasm of prostate Transglutaminase IgA Today R14.0 - Abdominal distension (gaseous) Complete Blood Count Auto Diff Today Z00.00 - Encounter for general adult medical examination without abnormal findings Comprehensive [place]. Panel Fast Today Z00.00 - Encounter for general adult medical examination without abnormal findings TSH reflex Free T4 Today Z00.00 - Encounter for general adult medical examination without abnormal findings Endomysial IgA rflx Titer Today R14.0 - Abdominal distension (gaseous) Referrals Gastroenterology Referral R14.0 - Abdominal distension (gaseous), Z12.11 - Encounter for screening for malignant neoplasm of colon
[2024-02-15 11:26] VITALS: BP 130/86
== END 2024-02-15 11:37 | disposition home or self-care (01) ==
PROVIDERS: PCP Nurse Practitioner Family; Visit Provider Nurse Practitioner Family
DX: Z00.00 Encounter for general adult medical examination without abnormal findings (principal); Z12.5 Encounter for screening for malignant neoplasm of prostate; Z12.11 Encounter for screening for malignant neoplasm of colon; R14.0 Abdominal distension (gaseous)

== ENCOUNTER → 2024-02-15 10:49 | Outpatient (BNVA) | payer OTHER, SELFPAY | PROVIDERS: PCP Nurse Practitioner Family; Visit Provider Nurse Practitioner Family | DX: Z00.01 Encounter for general adult medical examination with abnormal findings (principal); R14.0 Abdominal distension (gaseous); R05.8 Other specified cough | CPT/HCPCS: 96127 ==

== ENCOUNTER 2024-03-18 08:09 | Outpatient (AMB) | payer OTHER, SELFPAY ==
--- OUTSIDE RECORDS SUMMARY | 2024-03-18 08:12 | XMS_ITS | Clinical Summary ---
Author Organization [facility] Address [address] [place] [address] Care Team Providers Care Senior Mechanical Technician Name Role Phone Unavailable Primary Care Provider Unavailabl e Social History Tobacco Use Types Packs/Day Years Used Date Smoking Tobacco: Never Assessed Sex and Gender Information Value Date Recorded Sex Assigned at Not on file Gender Identity Not on file Sexual Orientation Not on file Plan of Treatment Not on file
--- NOTE | 2024-03-18 08:17 | AM.OFFWIN_ITS ---
Intake Vital Signs 3 03/18/24 08:18 Height 5 ft 9 in Weight 247 lb BMI 36.5 BP 140/90 H Blood Pressure Location Lt brachial Position Sitting Pulse 86 Pulse Source Pulse Oximeter Temp 97.9 F Temp Source Oral Pulse Oximetry (%) 97 Intake Visit Reasons: EP-lower back pain Intake Note: pt is here for lower back pain, comes an goes but ongoing for a week now Patient Tobacco Use Status: Never used Tobacco Allergies lisinopril Allergy (Unknown, Verified 03/18/24 08:18) left arm tingly Medication List - Last Reconciled 03/18/24 by Manav Mcknight MD albuterol sulfate 90 mcg/actuation 1 puff inhalation QID PRN coenzyme Q10 10 mg PO TID ezetimibe 10 mg PO DAILY vzlo-rynq-jrqyx-psla-jk-dci-mt 500-100 mg caps PO multivitamin 1 tab PO DAILY omeprazole 20 mg PO DAILY 90 days pravastatin 10 mg PO BEDTIME Do you need a note to return to daycare/school/sports/work: No HPI EP-lower back pain 2 HPI0 Details Patient is a 58-year-old gentleman came in today to be evaluated for right flank pain Movement makes it worse, 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 for the pain And cyclobenzaprine as a muscle relaxer Patient is to follow with the primary care if not better in a week [facility] Medical History Coronary artery calcification Cough Post covid-19 condition, unspecified Surgical History No pertinent past surgical history Social History Housing: House Patient Tobacco Use Status: Never used Tobacco e-Cigarette/Vaping Use: Never Used Second Hand Smoke Exposure: Yes service: No Current occupational status: employed Current occupation: [employer] Current occupational exposures/hazards: Yes Cognitive needs: No Hearing needs: No Vision needs: No Review of Systems Const All systems reviewed & are unremarkable except as noted in HPI and below Physical Exam Vital Signs: Last Vital Signs Temp 97.9 F 03/18/24 08:18 Pulse 86 03/18/24 08:18 BP 140/90 H 03/18/24 08:18 Pulse Ox 97 03/18/24 08:18 BMI result Body Mass Index 36.5 Const General: no acute distress Orientation/consciousness: patient oriented x3 Eyes General: appearance normal, both eyes and all related structures Resp Effort & Inspection: normal respiratory effort and able to speak in complete sentences Back/Spine/Pelvis Back/spine/pelvis image: 2 1. Site of pain, no pain with percussion, range of motion intact, able to rotate with some discomfort Neuro General: patient oriented x3 Psych Mental Status: mental status grossly normal Results AMB Urinalysis, Automated 2 UA Leukoctes 0 Vini/uL Last Edit by Stanton Swann CMA on 03/18/24 08:44 UA Nitrite Negative Last Edit by Stanton Swann CMA on 03/18/24 08:44 UA Urobilinogen 0.2 mg/dL Last Edit by Stanton Swann CMA on 03/18/24 08 :44 UA Protein 15 mg/dL Last Edit by Stanton Swann CMA on 03/18/24 08:44 UA pH 6.0 Last Edit by Stanton Swann CMA on 03/18/24 08:44 UA Blood 0 Sheldon/uL Last Edit by Stanton Swann CMA on 03/18/24 08:44 UA Specific [place] 1.025 Last Edit by Stanton Swann CMA on 03/18/24 08:44 UA Ketone Negative Last Edit by Stanton Swann CMA on 03/18/24 08:44 UA Bilirubin 0 mg/dL Last Edit by Stanton Swann CMA on 03/18/24 08:44 UA Glucose 0 mg/dL Last Edit by Stanton Swann CMA on 03/18/24 08:44 Results Reviewed Results Reviewed: Laboratory Last Values Urine pH (Auto) 6.0 03/18/24 08:43 Specific [place] (Auto) 1.025 03/18/24 08:43 Urine Protein (Auto) 15 mg/dL 03/18/24 08:43 Glucose (UA)(Auto) 0 mg/dL 03/18/24 08:43 Urine Ketones (Auto) Negative 03/18/24 08:43 Urine Blood (Auto) 0 Sheldon/uL 03/18/24 08:43 Urine Nitrite (Auto) Negative 03/18/24 08:43 Urine Bilirubin (Auto) 0 mg/dL 03/18/24 08:43 Urine Urobilinogen (Auto) 0.2 mg/dL 03/18/24 08:43 Leukocyte Esterase (Auto) 0 Vini/uL 03/18/24 08:43 Assessment & Plan Assessment & Plan (1) Right flank pain: Code(s): R10.9 - Unspecified abdominal pain Plan Patient is a 58-year-old gentleman came in today to be evaluated for right flank pain Movement makes it worse, 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 for the pain And cyclobenzaprine as a muscle relaxer Patient is to follow with the primary care if not better in a week Orders: Orders 2 AMB Urinalysis Automated Today Z13.9 - Encounter for screening, unspecified Medications: New 2 diclofenac sodium 75 mg PO BID 20 tabs 0RF pain 10 days cyclobenzaprine 10 mg PO BEDTIME PRN 10 tabs 0RF muscle spasm Coding Level of Care Code Est Pt Level 3 (08725) Diagnoses Right flank pain R10.9
[2024-03-18 08:18] VITALS: BP 140/90; PULSE 86; TEMP 36.6; O2SAT 97; BMI 36.5
== END 2024-03-18 08:57 | disposition home or self-care (01) ==
PROVIDERS: PCP Nurse Practitioner Family; Visit Provider Internal Medicine
DX: Z13.9 Encounter for screening, unspecified (principal); R10.9 Unspecified abdominal pain

== ENCOUNTER → 2024-03-18 08:09 | Outpatient (BNVA) | payer OTHER, SELFPAY | PROVIDERS: PCP Nurse Practitioner Family | DX: R10.9 Unspecified abdominal pain (principal) | CPT/HCPCS: 81003 ==

== ENCOUNTER 2024-06-10 09:58 | Day surgery (SDC) | payer OTHER, SELFPAY ==
--- OUTSIDE RECORDS SUMMARY | 2024-06-01 13:55 | XMS_ITS | Patient Health Record ---
Author Organization [facility] Address [address] [place] [address] Care Team Providers Care Claims Technician Name Role Phone SRAVAN DUTTA Primary Care Provider Kenney Phelan Jr [phone] Allergies No Known Allergies Reason For Referral No Information Medications Medication SIG (Take, Route, Fr equency, Duration) Notes Start Date End Date Status Collagen 500-50-0.8 MG as directed Orally Active Omeprazole 20 MG 1 capsule Orally Once a day Active Immunizations Vaccine Route Administration Date Status Comme nts Influenza Unknown 06/01/2024 Administered Social History AUDIT-C (Standard) Question Answer Notes Did you have a drink containing alcohol in the p ast year? No Points 0 Interpretation Negative Problems Problem Type SNOMED Code ICD Code Onset Dates Problem Status W/U Status Risk Notes Problem Esophageal reflux (021238024) Esophageal reflux (530.81) Active confirmed Problem 10535535 Rectal bleeding (569.3) Active confirmed Problem 894490382 Gastroesophageal reflux disease, unspecified whether esophagitis present (K21.9) Active confirmed Vital Signs Temperature 98.0 degrees Fahrenheit 06/01/2024 Blood pressure diastolic 01 mm Hg 06/01/2024 Height 70 in 06/01/2024 Blood pressure systolic 001 mm Hg 06/01/2024 Weight 249.2 lbs 06/01/2024 BMI 35.75 kg/m2 06/01/2024 Encounters Encounter Location Date Provider Diagnosis [facility] [address] [place] [id number] 06/01/2024 Kenney Carrasco Jr Gastroesophageal reflux disease, unspecified whether esophagitis present K21.9 ; Gastric intestinal metaplasia K31.A0 and Colon cancer screening Z12.11 Assessments Encounter Date Diagnosis (ICD Code) Assessment Notes Treatment Notes Treatment Clinical Notes Section Notes 06/01/2024 Gastroesophageal reflux disease, unspecified whether esophagitis present (ICD-10 - K21.9) 06/01/2024 Gastric intestinal metaplasia (ICD-10 - K31.A0) 06/01/2024 Colon cancer screening (ICD-10 - Z12.11) Plan Of Treatment Future Test Test Name Order Date UPPER GI ENDOSCOPY 12/22/2012 COLONOSCOPY 12/22/2013 UPPER GI ENDOSCOPY 06/01/2024 COLONOSCOPY 06/01/2024 Next Appt Details Provider Name:Kenney escobar Jr, 06/10/2024 12:10:00 PM, [address] [place] [address] , [place], [place], [phone], Insurance Providers Payer Name Payer Address Payer Phone Subscriber Number Group Number Insured Name Patient Relationship to Insured Coverage Start Date Coverage End Date [facility] [address] [place] [address] [phone] [id number] RUTH COVARRUBIAS Self - patient is the insured Medical (General) History Medical History History ICD Code elevated Cholesterol gastroesophageal reflux disease (GERD) Denies DC,DM,CVA,Lung disease,renal dise ase
--- OUTSIDE RECORDS SUMMARY | 2024-06-01 13:55 | XMS_ITS | Clinical Summary ---
Author Organization [facility] Address [address] [place] [address] Care Team Providers Care Composite Layup Worker Name Role Phone Unavailable Primary Care Provider Unavailabl e Social History Tobacco Use Types Packs/Day Years Used Date Smoking Tobacco: Never Assessed Sex and Gender Information Value Date Recorded Sex Assigned at Not on file Gender Identity Not on file Sexual Orientation Not on file Plan of Treatment Not on file
--- OUTSIDE RECORDS SUMMARY | 2024-06-01 13:55 | XMS_ITS ---
Author Organization [facility] Address [address] [place] [address] Care Team Providers Care Rehab Therapist Name Role Phone DAVIDECaesar SRAVAN Primary Care Provider Kenney Phelan Jr Unavailable [phone] Allergies No Known Allergies REASON FOR VISIT Patient presents today for a COLON SCREENING Medications Medication SIG (Take, Route, Fr equency, Duration) Notes Start Date End Date Status Collagen 500-50-0.8 MG as directed Orally Active Omeprazole 20 MG 1 capsule Orally Once a day Active Social History Alcohol Screen Question Answer Notes Did you have a drink contain ing alcohol in the past year? Yes Points 3 Interpretation Negative How often did you have 6 or more drinks on one occasion in the past year? Never (0 point) How many drinks did you have on a typical day when you were drinking in the past year? 3 or 4 drinks (1 point) How often did you have a dri nk containing alcohol in the past year? 2 to 4 times a month (2 points) AUDIT-C (Standard) Question Answer Notes Did you have a drink containing alcohol in the p ast year? No Points 0 Interpretation Negative Problems Problem Type SNOMED Code ICD Code Onset Dates Problem Status W/U Status Risk Notes Problem [id number] Gastroesophageal reflux disease, unspecified whether esophagitis present (K21.9) Active confirmed Vital Signs Temperature 98.0 degrees Fahrenheit 06/02/19 25 Blood pressure systolic 001 mm Hg 06/02/19 25 Blood pressure diastolic 01 mm Hg 025 Height 70 in 06/01/2024 Weight 249.2 lbs 06/01/2024 BMI 35.75 kg/m2 06/01/2024 Encounters Encounter Location Date Provider Diagnosis [facility] [address] [facility] [address] [place] [address] 06/01/2024 Kenney Carrasco Jr Gastroesophageal reflux disease, [...] Test Name Order Date UPPER GI ENDOSCOPY 06/01/2024 COLONOSCOPY 06/01/2024 Next Appt Details Provider Name:Kenney escobar Jr, 06/10/2024 12:10:00 PM, [address] [place] [address] , [place], [place], [id number], Progress Notes * MILANRUTH ECHOLSDOB: 6 (58 yo M)Acc No.[id number]:06/01/2024 Progress Notes Patient:?RUTH COVARRUBIAS Provider:?Kenney Carrasco MD :1965???Age:58 Y???Sex:Male Krish e:06/01/2024 Address:[address] [place], [place] [id number] Pcp:SRAVAN DUTTA Subjective: * Chief Complaints: * ???1. Patient presents today for a COLON SCREENING. * Medical History:?elevated Ch olesterol, gastroesophageal reflux disease (GERD), Denies AK,DM,CVA,Lung disease,renal disease. * Family History:?Father: dece ased, diagnosed with Diabetes.?Mother: alive.? Negative family history for stomach cancer.? No family history of colon cancer or liver cancer. * Social History:?Tobacco Use:?Tobacco Use/Smoking?Are you a: nonsmoker.?Drugs/Alcohol:?Alcohol Screen?Did you have a drink containing alcohol in the past year??Yes,?How often did you have 6 or more drinks on one occasion in the past year??Never (0 point),?How many drinks did you have on a typical day when you were drinking in the past year??3 or 4 drinks (1 point),?How often did you have a drink containing alcohol in the past year??2 to 4 times a month (2 points),?Points?3,?Interpretation?Negative.?Miscellaneous:?Marital status: . 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 ???Drug/Alcohol:?AUDIT-C (Standard)?Did you have a drink containing alcohol in the past year??No,?Points?0,?Interpretation?Negative.? * Medications:?Taking Collagen 500-50-0.8 MG Capsule as directed Orally , Taking Omeprazole 20 MG Capsule Delayed Release 1 capsule Orally Once a day , Discontinued Suprep Bowel Prep 1 Solution as directed Orally 1 , Medication List reviewed and reconciled with the patient * Allergies:?N.K.D.A. Objective: * Vitals:?Wt:249.2lbs, Ht: 70 in, BMI:35.75Index, BP:001/01mm Hg, Temp:98.0, Wt- k.04. Assessment: * Assessment: 1.?Gastroesophageal reflux d isease, unspecified whether esophagitis present - K21.9 (Primary)???2.?Gastric intestinal metaplasia - K31.A0???3.?Colon cancer screening - Z12.11??? Plan: * Treatment: ?Procedure: COLONOSCOPY (Ordered for 06/01/2024)* sched for 06/10/24 at 12:10 p mmacmiralax 2.?Gastric intestinal metaplasia?Procedure: UPPER GI ENDOSCOPY (Ordered for 06/01/2024)* sched for 06/10/24 at 12:10 p mmac ?Procedure: COLONOSCOPY (Ordered for 06/01/2024)* sched for 06/10/24 at 12:10 p mmacmiralax 3.?Colon cancer screening?Procedure: UPPER GI ENDOSCOPY (Ordered for 06/01/2024)* sched for 06/10/24 at 12:10 p mmac ?Procedure: COLONOSCOPY (Ordered for 06/01/2024)* sched for 06/10/24 at 12:10 p mmacmiralax * Preventive Medicine:? ??Counseling:?Care goal follow-up plan:?Above Normal BMI Follow-up?Dietary management education, guidance, and counseling,?BMI management provided?Yes.? * * The named appointment provid er may or may not be the originator of this progress note, and it is not deemed complete until electronically signed by the appointment provider. Sign off status: Pending * Provider:?Kenney Carrasco MD Date:?0 06/01/2024 Generated for Kinsey fonseca/Sofiya/eTransmitting on:?06/01/2024 01:54 PM EDT
[2024-06-08 14:30] VITALS: BMI 35.8
--- NOTE | 2024-06-09 08:36 | P.CONAN_ITS ---
Documented by User: Deborah Lees NP 06/09/24 08:36 HPI - Anesthesia Eval Consult details Narrative: 58yo M for Upper Endoscopy and Colonoscopy PMF Active Problems Active Problems: All Active Problems Right flank pain (Acute) Bloating (Acute) Screening for colon cancer (Acute) Post-COVID syndrome (Acute) Dyslipidemia (Acute) Elevated liver enzymes (Acute) Palpitations (Acute) Screening PSA (prostate specific antigen) (Acute) Physical exam (Acute) Dyspnea due to COVID-19 (Acute) SOB (shortness of breath) (Acute) Acute viral syndrome (Acute) Coronary artery calcification (Acute) Cough (Acute) Post covid-19 condition, unspecified (Acute) Past Medical History Medical History PAC (premature atrial contraction) Hyperlipidemia GERD (gastroesophageal reflux disease) Coronary artery calcification Cough Post covid-19 condition, unspecified Surgical History Surgical History History of esophagogastroduodenoscopy (EGD) H/O colonoscopy Social History Social History Household Members: Spouse Housing: House Patient Tobacco Use Status: Never used Tobacco e-Cigarette/Vaping Use: Never Used Second Hand Smoke Exposure: Yes Advance Directives: No Advance Directives Information Provided: Yes service: No Current occupational status: employed Current occupation: [employer] Current occupational exposures/hazards: Yes Cognitive needs: No Hearing needs: No Vision needs: No Meds Allergies Allergy/AdvReac Type Severity Reaction Status Date / Time lisinopril Allergy Unknown left arm Verified 03/18/24 08:18 tingly Home Medications ?Medication ?Instructions ?Recorded ?Confirmed ?Last Taken ?Type g.csks-emkvzcf-vqv clover-yl 1 cap PO DAILY 11/14/20 06/08/24 Unknown History uu-yekn-juwh-milk thist 500 mg-100 mg cap multivitamin 1 tab PO DAILY 11/14/20 06/08/24 Unknown History Exam Height,Weight and Vital Signs: Height 5 ft 10 in Weight 113.035 kg Assessment and Plan Assessment Anesthesia Assessment: Chart Reviewed Documented by User: Chelle Nath MD 06/10/24 11:26 [facility] Past Medical History Medical History PAC (premature atrial contraction) Hyperlipidemia GERD (gastroesophageal reflux disease) Coronary artery calcification Cough Post covid-19 condition, unspecified Family History Family history of problems with anesthesia: No Surgical History Surgical History History of esophagogastroduodenoscopy (EGD) H/O colonoscopy History of Problems with Anesthesia: No Social History Social History Household Members: Spouse Housing: House Patient Tobacco Use Status: Never used Tobacco e-Cigarette/Vaping Use: Never Used Second Hand Smoke Exposure: Yes Advance Directives: No Advance Directives Information Provided: Yes service: No Current occupational status: employed Current occupation: [employer] Current occupational exposures/hazards: Yes Cognitive needs: No Hearing needs: No Vision needs: No Meds Allergies Allergy/AdvReac Type Severity Reaction Status Date / Time lisinopril Allergy Unknown left arm Verified 03/18/24 08:18 tingly Home Medications ?Medication ?Instructions ?Recorded ?Confirmed ?Last Taken ?Type g.huyx-vytdiwx-ohx clover-yl 1 cap PO DAILY 11/14/20 06/08/24 Unknown History kp-qrxg-hrdq-milk thist 500 mg-100 mg cap multivitamin 1 tab PO DAILY 11/14/20 06/08/24 Unknown History Exam Height,Weight and Vital Signs: Height 5 ft 10 in Weight 113.035 kg Vital Signs Temp Pulse Resp BP Pulse Ox O2 Del Method 06/10/24 10:18 97.7 F 84 18 140/99 H 96 Room Air Airway Mallampati Class: IV TM Dist: >3cm Neck ROM: Full Loose/Missing/Broken Teeth: Yes (Missing wisdom teeth. Denies broken or loose teeth) Heart: RRR Lungs: CTAB Assessment and Plan Assessment Anesthesia Assessment: Anesthesia Plan Discussed and Chart Reviewed Final Anesthetic Review Family History of Problems with Anesthesia: No History of Problems with Anesthesia: No NPO: Yes ASA Class: III Final Preanesthetic Review: No Changes in Pt Med Stat, Meds/Allgs Chart Reviewed, Consent Obtained/Reviewed and Anes Risks/Benef Reviewed Patient Risk: Intermediate Procedure Risk: Low Assessment/Block/Sedation in SS: Assess/Block/Sedation-SS Anesthetic Plan Anesthetic Plan: TIVA Disposition: Standard PACU
[2024-06-10 10:18] VITALS: BP 140/99; PULSE 84; RESP 18; TEMP 36.5; O2SAT 96; BMI 35.2
[2024-06-10] MEDS: Lactated Ringers 1,000 ML 100 ML IVCONT (10:39)
--- NOTE | 2024-06-10 11:01 | MHC.SHP ---
Pre-Procedural Eval Section A - 24 Hr Update-Section A only Date of Service: 06/10/24 The patient is an INPATIENT: No Changes since office visit: No Cold of Flu in the past 2 weeks, No New Medical Problems, No Changes in Medication and No Patient answered all questions The patient has been examined within 24 hours of the surgical procedure. The History & Physical has been completed within 30 days and I have reviewed it.: Yes Section B - Complete if H&P > 30 days Chief Complaint: screening,gastric intestinal metaplasia Allergies: Allergies Allergy/AdvReac Type Severity Reaction Status Date / Time lisinopril Allergy Unknown left arm Verified 03/18/24 08:18 tingly Plan I have reviewed the history and physical and performed a pertinent physical examination on my patient. No changes have occurred unless specified. Time Spent With Patient Time: Total time managing care of this patient today ____ minutes.
--- NOTE | 2024-06-10 11:56 | PM.OP ---
Brief Operative Note Date of Service: 06/10/24 Pre-op diagnosis: gastric intestinal metaplasia screening Post-op diagnosis: same Procedure: EGD colonoscopy Surgeon: Kenney Carrasco MD Anesthesia: MAC Was an Coordinator Skill Training Program used for this Procedure?: No Estimated blood loss (mL): 5 Pathology: other Condition: critical Disposition: PACU
[2024-06-10 12:01] VITALS: BP 127/79; PULSE 86; RESP 15; TEMP 36.4; O2SAT 98
[2024-06-10 12:16] VITALS: BP 127/86; PULSE 96; RESP 16; O2SAT 94
[2024-06-10 12:31] VITALS: BP 120/82; PULSE 90; RESP 16; TEMP 36.4; O2SAT 95
--- NOTE | 2024-06-10 12:35 | OP_ITS ---
DATE OF SERVICE: 06/10/2024 SURGEON: Kenney Carrasco MD INDICATIONS: 1. Gastric intestinal metaplasia. 2. Gastroesophageal reflux disease. 3. Colon cancer screening. PREOPERATIVE DIAGNOSIS: POSTOPERATIVE DIAGNOSIS: PROCEDURE PERFORMED: Upper endoscopy with biopsy, colonoscopy to the terminal ileum. ESTIMATED BLOOD LOSS: COMPLICATIONS: ANESTHESIA: Monitored anesthesia care. ASSISTANTS: SPECIMENS: DESCRIPTION OF PROCEDURE: A history and physical were performed. The risks and benefits of the procedure were explained to the patient. Informed consent was obtained. The patient was placed in the left lateral decubitus position. The Olympus videogastroscope was introduced into the esophagus, stomach, and duodenum. Examination was performed. The scope was removed. He was repositioned for colonoscopy. A digital rectal exam was performed and was found to be normal. The Olympus pediatric videocolonoscope was introduced in the rectum and advanced to the cecum. The cecum was identified by transillumination, palpation, and identification of ileocecal valve. Examination was performed. The scope was removed. He tolerated both procedures well, was returned to recovery area in stable condition. FINDINGS: Upper endoscopy, esophagus: The esophagus was normal. Stomach: The stomach showed no evidence of masses, ulcers, or lesions. Random biopsies were obtained throughout the stomach because of his history of gastric metaplasia. Duodenum: The bulb and 2nd portion were normal. Colonoscopy: The terminal ileum was examined and appeared normal. The visualized colonic mucosa was normal. The quality of prep was good. There was mild sigmoid diverticulosis. Retroflexed examination showed moderate-sized internal hemorrhoids. IMPRESSION: 1. Gastric intestinal metaplasia. 2. Normal colonoscopy. RECOMMENDATIONS: 1. Follow up the biopsy results. 2. Repeat colonoscopy is recommended in 10 years for average-risk individuals. MD CANDACE Moon/BJ / [id number]
== END 2024-06-10 12:15 | disposition home or self-care (01) ==
PROVIDERS: PCP Nurse Practitioner Family; Visit Provider Internal Medicine Gastroenterology
PROC: (CPT 45378; principal; 2024-06-10 11:20)
DX: Z12.11 Encounter for screening for malignant neoplasm of colon (principal); K57.30 Diverticulosis of large intestine without perforation or abscess without bleeding; K64.8 Other hemorrhoids; K21.9 Gastro-esophageal reflux disease without esophagitis; K29.50 Unspecified chronic gastritis without bleeding; Z87.19 Personal history of other diseases of the digestive system; E78.5 Hyperlipidemia, unspecified; Z79.899 Other long term (current) drug therapy
CPT/HCPCS: 45378; 43239; 88305; 88313; 88342; J1100; J2003; J2704

== ENCOUNTER 2024-07-27 06:06 | Outpatient (REF) | payer OTHER, SELFPAY ==
--- OUTSIDE RECORDS SUMMARY | 2024-07-27 06:09 | XMS_ITS ---
Author Organization [facility] Address [address] [place] [address] Care Team Providers Care Mathematics Department Chair Name Role Phone DANYAJUANIS SRAVAN Primary Care Provider Subhash Carrasco Jr, Kenney Lance [phone] REASON FOR VISIT path Encounters Encounter Location Date Provider Diagnosis [facility] [address] [facility] [address] [place] [address] 06/15/2024 Kenney Carrasco Jr Plan Of Treatment Next Appt Details Provider Name:Kenney escobar Jr, 06/22/2025 01:35:00 PM, [address] [facility], [address], [place], [address], Progress Notes * RUTH COVARRUBIASDOB: [birth year] (58 yo M)Acc No.[id number]:06/15/2024 Patient:?RUTH COVARRUBIAS :1965???Age:58 Y???Sex:Male Address:[address] [place] [address] [place] [address] * true * Date:? Generated for Printi marian/Fatamra/eTransmitting on:?07/27/2024 06:09 AM EDT
[2024-07-27 10:34] LABS: MANUAL DIFF FLAG NO
[2024-07-27 10:41] LABS: Basophils Percent Auto 0.5 % (0-2); Eosinophils Absolute Auto 0.1 X10*3/uL (0.0-0.4); Eosinophils Percent Auto 1.7 % (0-4); Hematocrit 42.8 % (42.0-52.0); Hemoglobin 14.4 g/dl (14.0-18.0); Imm Gran Abs Auto 0.01 X10*3/uL (0.00-0.03); Imm Gran Pct Auto 0.2 % (0.0-0.4); Lymphocytes Absolute Auto 3.3 X10*3/uL (1.2-4.9); Lymphocytes Percent Auto 51.8 % (20-40); Mean Corpuscular HGB Conc 33.6 g/dl (31.0-36.0); Mean Corpuscular Volume 86.3 fL (80.0-98.0); Mean Platelet Volume 11.4 fL (9.4-12.4); Monocytes Absolute Auto 0.5 X10*3/uL (0.1-1.2); Monocytes Percent Auto 7.9 % (2-11); Neutrophils Absolute Auto 2.4 x10*3/uL (2.0-8.3); Neutrophils Percent Auto 37.9 % (45-73); Platelet Count 234 X10*3/uL (160-400); Red Blood Count 4.96 X10*6/uL (4.60-5.80); Red Cell Distribution Width 13.2 % (11.0-16.0); White Blood Count 6.4 X10*3/uL (4.8-10.8)
[2024-07-27 10:48] LABS: Appearance Urine Clear; Color Urine Yellow; Glucose Urine UA Negative (Negative); Leukocyte Esterase Urine Negative (Negative); Nitrite Urine Negative (Negative); PH 5.5 (5.0-9.0); Specific Gravity - Urine 1.025 (1.005-1.025); Urine Blood Negative (Negative); Urine Ketones Negative (Negative); Urine Protein Negative (Neg-Trace)
[2024-07-27 11:09] LABS: Prostate Specific Antigen Scr 0.21 ng/mL (<0.05-4.0)
[2024-07-27 11:10] LABS: Alanine Aminotransferase 116 U/L (0-40); Albumin Level 4.7 g/dL (3.5-5.0); Alkaline Phosphatase 41 U/L (39-117); Anion Gap 10 (12-20); Aspartate Amino Transferase 65 U/L (5-37); Bilirubin Total 0.6 mg/dL (0.0-1.0); Blood Urea Nitrogen 17 mg/dL (9-16); Calcium 9.5 mg/dL (8.4-10.2); Carbon Dioxide 25 mmol/L (22-29); Chloride 104 mmol/L (96-108); Cholesterol 242 mg/dL (<200); Estimated Glomerular Filt Rate > 60; Glucose Fasting 107 mg/dL (60-99); HDL Cholesterol 35 mg/dL (>40); LDL Cholesterol Calculated 162 mg/dL (<100); Sodium 135 mmol/L (135-145); Total Protein 7.4 g/dL (6.5-8.0); Triglycerides 225 mg/dL (<150)
[2024-07-29 13:09] LABS: Transglutaminase IgA <1.0 U/mL
[2024-08-01 15:43] LABS: Endomysial IgA Antibody Negative (Negative)
== END 2024-07-27 06:07 | disposition home or self-care (01) ==
LOC: HO.HMGCLDS 06:06
PROVIDERS: PCP Nurse Practitioner Family; Visit Provider Nurse Practitioner Family
DX: Z00.00 Encounter for general adult medical examination without abnormal findings (principal); Z12.5 Encounter for screening for malignant neoplasm of prostate; R14.0 Abdominal distension (gaseous)
CPT/HCPCS: 36415; 80053; 80061; 81003; 84153; 84443; 85025; 86231; 86364

== ENCOUNTER 2024-08-03 14:08 | Outpatient (AMB) | payer OTHER, SELFPAY ==
--- OUTSIDE RECORDS SUMMARY | 2024-06-15 11:13 | XMS_ITS ---
Author Organization [facility] Address [address] [place] [address] Care Team Providers Care Welder Fitter Name Role Phone DAVIDECaesar SRAVAN Primary Care Provider Subhash Carrasco Jr, Kenney Lance REASON FOR VISIT path Encounters Encounter Location Date Provider Diagnosis [facility] [address] [place] [address] [address] [place] [address] 06/15/2024 Kenney Carrasco Jr Plan Of Treatment Next Appt Details Provider Name:Kenney escobar Jr, 06/22/2025 01:35:00 PM, [address] [facility], [address], [place], [address], Progress Notes * RUTH COVARRUBIASDOB: 6 (58 yo M)Acc No.[id number]:06/15/2024 Patient: RUTH CHAU :1965 A ge:58 Y S ex:Male Address:[address] [place] [address] [place] [address] * true * Date: Generated for Printi ng/Fatonnyg/eTransmitting on: 0 08/03/2024 04:16 PM EDT
--- NOTE | 2024-08-03 14:16 | MHC.PC.OV ---
Vital Signs 08/03/24 14:17 Height 5 ft 10 in Weight 248 lb BMI 35.6 BP 112/80 Blood Pressure Location Rt brachial Position Sitting Pulse 88 Pulse Source Pulse Oximeter Pulse Oximetry (%) 95 Oxygen Delivery Method Room Air Intake Visit Reasons: 6 months f/up Allergies lisinopril Allergy (Unknown, Verified 08/03/24 14:17) left arm tingly Medication List - Last Reconciled 08/03/24 by Drew Tran, ASSET MANAGEMENT LEAD-BC bergamot extract ([place] Bergamot) mg PO coenzyme Q10 10 mg PO TID diclofenac sodium 75 mg PO BID 10 days ezetimibe 10 mg PO DAILY fcob-keim-httui-isul-qq-gzn-mt 500-100 mg 1 cap PO DAILY multivitamin 1 tab PO DAILY omeprazole 20 mg PO DAILY 90 days Tobacco use date assessed: 08/03/24 Dental Screening Dental Screen Date: 08/03/24 Did you have a dental visit in the last 12 months?: Yes Did you have a dental problem in the last 6 months where you did not have access to dental care?: No Was dental information given to patient?: Patient has dentist HPI 6 months f/up HPI Details History of Present Illness The patient is a 58-year-old male presenting with elevated cholesterol and LDL levels. He has a history of coronary artery calcifications and does not tolerate statins, which has led to the use of alternative treatments such as Ezetimibe and [place] bergamot, though these have not been effective. His colon cancer screening and PSA tests are up to date, indicating adherence to preventative care measures. Health Maintenance - Colon cancer screening is up to date - PSA screening is up to date Social History Review of Systems - Respiratory: Denies dyspnea - Gastrointestinal: Denies abdominal pain, blood in stool, constipation, diarrhea - Cardiovascular: Denies chest pain - Psychiatric: Denies suicidal ideation, homicidal ideation Physical Exam General: Cooperative, healthy appearing, comfortable, no acute distress and well developed, obese Orientation: Patient oriented x3 Limitations: No limitations Head: Normal to inspection Ears: Hearing grossly normal bilaterally Nose: Normal external nose present Face and sinus: Normal facial exam Eyes: Appearance normal, both eyes and all related structures Neck: Normal visual inspection and Yes full ROM Respiratory: Normal respiratory effort and able to speak in complete sentences. Clear to auscultation bilaterally Cardiovascular: Regular rate and rhythm. Normal S1 and S2 GI: Normal to inspection. Soft to palpation and nontender : Testicles without masses/lesions and no hernias appreciated Skin: No rashes or lesions noted Neuro: Patient oriented x3 Extremities: Normal to inspection Results Plan The patient will continue with Ezetimibe and [place] bergamot for hyperlipidemia management, despite their limited efficacy. Further evaluation of alternative lipid-lowering therapies as Repatha was discussed. WIll send. Discussion Notes [facility] Medical History PAC (premature atrial contraction) Hyperlipidemia GERD (gastroesophageal reflux disease) Coronary artery calcification Cough Post covid-19 condition, unspecified Surgical History History of esophagogastroduodenoscopy (EGD) H/O colonoscopy Social History Household Members: Spouse Housing: House Patient Tobacco Use Status: Never used Tobacco e-Cigarette/Vaping Use: Never Used Second Hand Smoke Exposure: Yes service: No Current occupational status: employed Current occupation: [employer] Current occupational exposures/hazards: Yes Cognitive needs: No Hearing needs: No Vision needs: No Questionnaire PHQ-9 Over the last 2 weeks, how often have you been bothered by any of the following problems? 1. Little interest or pleasure in doing things: not at all 2. Feeling down, depressed, or hopeless: not at all 3. Trouble falling or staying asleep, or sleeping too much: not at all 4. Feeling tired or having little energy: not at all 5. Poor appetite or overeating: not at all 6. Feeling bad about yourself - or that you are a failure or have let yourself or your family down: not at all 7. Trouble concentrating on things, such as reading the newspaper or watching television: not at all 8. Moving or speaking so slowly that other people could have noticed. Or the opposite - being so fidgety or restless that you have been moving around a lot more than usual: not at all 9. Thoughts that you would be better off or of hurting yourself in some way: not at all Total score: 0 Depression Screening Interpretation: Negative Depression Screening Done: Yes 32619 - PHQ-9 Billing: Yes Source: Developed by Drs. Marcial Braxton, Armando Frank and colleagues, with an educational jordi from [employer]. Thrive Questionnaire Date Thrive assessed: 08/03/24 I am a: Patient What is your living situation today?: I have a steady place to live Within the past 12 months, did the food you bought not last and you didn't have the money to get more?: Never true Within the past 12 months, did you worry whether your food would run out before you got money to buy more?: Never true Do you have trouble paying for medicines?: No Do you have trouble getting transportation to medical appointments?: No Do you have trouble paying your heating and electricity bill?: No Do you have trouble taking care of your child, family member or friend?: No Do you have trouble with day-to-day activities such as bathing, preparing meals, shopping, managing finances, etc.?: No Are you currently unemployed and looking for a job?: No Are you interested in more education?: No Please select the resources that you would like help with: None Currently or been in a relationship where the following occur: No concerns reported THRIVE Score: 0 AUDIT C Alcohol Use Questionnaire (AUDIT-C) 1. How often do you have a drink containing alcohol?: Never 3. How often do you have six or more drinks on one occasion?: Never Total Score: 0 Score Reviewed/Action Taken: Yes FARHAD-7 AMB Questionnaire FARHAD-7 Date FARHAD - 7 assessed: 08/03/24 Feeling nervous, anxious, or on edge: 0 = Not at all Not being able to stop or control worryin = Not at all Worrying too much about different things: 0 = Not at all Trouble relaxin = Not at all Being so restless that it is hard to sit still: 0 = Not at all Becoming easily annoyed or irritable: 0 = Not at all Feeling afraid as if something awful might happen: 0 = Not at all Total FARHAD-7 score (0-4 normal; 5-9 mild; 10-14 moderate; 15-21 severe): 0 Source: Developed by Felicia Calle Kurt Kroenke and colleagues, with an educational jordi from [employer]. FARHAD-7 Assessment Billing FARHAD-7 Assessment Tool: FARHAD-7 Assessment 20125 Physical exam (Primary Care) Vital Signs: Last Vital Signs Pulse 88 08/03/24 14:17 BP 112/80 08/03/24 14:17 Pulse Ox 95 08/03/24 14:17 Oxygen Delivery Method Room Air 08/03/24 14:17 BMI result Body Mass Index 35.6 Tobacco/Smoking Status: Tobacco use Status Tobacco use date assessed 08/03/24 08/03/24 14:18 Patient Tobacco Use Status Never used Tobacco 08/03/24 14:18 e-Cigarette/Vaping Use Never Used 08/03/24 14:18 PHQ-9: PHQ-9 Score PHQ-9: Total score 0 08/03/24 14:18 Depression Screening Interpretation: Negative Thrive Assessment: Date of Thrive Assessment Date Thrive assessed 08/03/24 08/03/24 14:18 Currently or been in a relationship where the following occur: No concerns reported Coding Level of Care Code Est Pt Prev Care 40-64y(11911) Diagnoses Dyslipidemia E78.5 Coronary artery calcification I25.10; I25.84 Encounter for routine adult physical exam with abnormal findings Z00. Additional Codes FARHAD-7 Assessment Billing - FARHAD-7 Assessment Tool: FARHAD-7 Assessment 39397 ([id number]) PHQ-9 - 03628 - PHQ-9 Billing: Yes ([id number]) Assessment & Plan Assessment & Plan (1) Dyslipidemia: Code(s): E78.5 - Hyperlipidemia, unspecified Category: Medical (2) Coronary artery calcification: Comment: per CT chest 2020 Code(s): I25.10 - Atherosclerotic heart disease of [place] coronary artery without angina pectoris; I25.84 - Coronary atherosclerosis due to calcified coronary lesion Category: Medical (3) Encounter for routine adult physical exam with abnormal findings: Code(s): Z00.01 - Encounter for general adult medical examination with abnormal findings Category: Medical Plan . Orders: Orders Comprehensive [place]. Panel Fast Today E78.5 - Hyperlipidemia, unspecified AMB EKG-In Office Today Z00.00 - Encounter for general adult medical examination without abnormal findings Lipid Panel Today E78.5 - Hyperlipidemia, unspecified Medications: New evolocumab (Repatha SureClick) 140 mg subcut Q2W 2 mL 0RF
[2024-08-03 14:17] VITALS: BP 112/80; PULSE 88; O2SAT 95; BMI 35.6
== END 2024-08-03 15:18 | disposition home or self-care (01) ==
LOC: HO.HMCC 14:09
PROVIDERS: PCP Nurse Practitioner Family; Visit Provider Nurse Practitioner Family
DX: E78.5 Hyperlipidemia, unspecified (principal); I25.10 Atherosclerotic heart disease of native coronary artery without angina pectoris; I25.84 Coronary atherosclerosis due to calcified coronary lesion; Z00.01 Encounter for general adult medical examination with abnormal findings

== ENCOUNTER → 2024-08-03 14:08 | Outpatient (BNVA) | payer OTHER, SELFPAY | PROVIDERS: PCP Nurse Practitioner Family; Visit Provider Nurse Practitioner Family | DX: Z00.01 Encounter for general adult medical examination with abnormal findings (principal); E78.5 Hyperlipidemia, unspecified; I25.10 Atherosclerotic heart disease of native coronary artery without angina pectoris; I25.84 Coronary atherosclerosis due to calcified coronary lesion | CPT/HCPCS: 96127 ==

== ENCOUNTER 2025-02-02 06:05 | Outpatient (REF) | payer OTHER, SELFPAY ==
--- OUTSIDE RECORDS SUMMARY | 2024-06-10 06:20 | XMS_ITS ---
Author Organization [facility] Address [address] [place] [address] [place] [address] Care Team Providers Care Supply Aide Name Role Phone DANYAJUANIS SRAVAN Primary Care Provider Subhash Carrasco Jr, Kenney Lance REASON FOR VISIT gerd,screening, gastric instestinal metaplasia Encounters Encounter Location Date Provider Diagnosis [facility] [address] [place] [phone] 06/10/2024 Kenney Carrasco Jr Colon cancer screening Z12.11 ; Gastric intestinal metaplasia K31.A0 and Chronic GERD K21.9 Assessments Encounter Date Diagnosis (ICD Code) Assessment Notes Treatment Notes Treatment Clinical Notes Section Notes 06/10/2024 Colon cancer screening (ICD-10 - Z12.11) 06/10/2024 Gastric intestinal metaplasia (ICD-10 - K31.A0) 06/10/2024 Chronic GERD (ICD-10 - K21.9) Plan Of Treatment Next Appt Details Provider Name:Kenney escobar Jr, 06/22/2025 01:35:00 PM, [address] [facility], [address], [place], [address], Progress Notes * RUTH COVARRUBIASDOB: 6 (59 yo M)Acc No.[id number]:06/10/2024 EGD and COL/MAC Patient: RUTH CHAU Provider: David Carrasco MD :1965 A ge:58 Y S ex:Male Date:06/10/2024 Address:[address] [place] [address], [id number] Pcp:SRAVAN DUTTA Subjective: * Chief Complaints: * G erd,screening, gastric instestinal metaplasia Assessment: * Assessment: 1. C olon cancer screening - Z12.11 (Primary) 2 . G astric intestinal metaplasia - K31.A0 3 . C hronic GERD - K21.9 Plan: * Procedure Codes: 4 5378 DIAGNOSTIC [id number] UPPER GI ENDOSCOPY, BIOPSY Billing Information: * Procedure Codes: 53167 DIAGNOSTIC COLONOSCOPY. 51390 UPPER GI ENDOSCOPY, BIOPSY. * The named appointment provid er may or may not be the originator of this progress note, and it is not deemed complete until electronically signed by the appointment provider. Sign off status: Pending * Provider: David Carrasco MD Date: 0 06/10/2024 Generated for Kinsey fonseca/Sofiya/Jenniferitting on: 1 04/05/2024 06:09 AM EST
--- OUTSIDE RECORDS SUMMARY | 2025-02-02 06:09 | XMS_ITS | Clinical Summary ---
[facility] Prior to 07[facility]16[facility] [place] [id number] Care Team Providers Care Music Agent Name Role Phone Unavailable Primary Care Provider Unavailabl e Social History Tobacco Use Types Packs/Day Years Used Date Smoking Tobacco: Never Assessed Sex and Gender Information Value Date Recorded Sex Assigned at Not on file Gender Identity Not on file Sexual Orientation Not on file Plan of Treatment Not on file
--- OUTSIDE RECORDS SUMMARY | 2025-02-02 06:09 | XMS_ITS | Patient Health Record ---
Author Organization [facility] Address [address] [place] [address] Care Team Providers Care Hand Tile Maker Name Role Phone SRAVAN DUTTA Primary Care Provider Kenney Phelan Jr Unavailable Allergies No Known Allergies Results Component Value Reference Range Notes Pathology Reviewed date:06/15/2024 03:15:49 PM Interpretation: Performing Lab:[facility], [address] [place] [id number] Notes/Report: Reason For Referral No Information Medications Medication SIG (Take, Route, Frequency, Duration) Notes Start Date End Date Status Collagen 500-50-0.8 MG Capsule as directed Orally Active Omeprazole 20 MG Capsule Delayed Release 1 capsule Orally Once a day Active Immunizations Vaccine Route Administration Date Status Comme nts Influenza Unknown 06/01/2024 Administered Social History Social History Drug/Alcohol: Social Info Question Answer Notes AUDIT-C (Standard) Did you have a drink containing alcohol in the past year? 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 Problems Problem Type SNOMED Code ICD Code Onset Dates Problem Status W/U Status Risk Notes Problem Esophageal reflux (987309004) Esophageal reflux (530.81) Active confirmed Problem Rectal bleeding (33134386) Rectal bleeding (569.3) Active confirmed Problem Gastroesophageal reflux disease (862318794) Gastroesophageal reflux disease, unspecified whether esophagitis present (K21.9) Active confirmed Vital Signs Temperature 98.0 degrees Fahrenheit 06/01/2024 Blood pressure diastolic 01 mm Hg 06/01/2024 Height 70 in 06/01/2024 Blood pressure systolic 001 mm Hg 06/01/2024 Weight 249.2 lbs 06/01/2024 BMI 35.75 kg/m2 06/01/2024 Encounters Encounter Location Date Provider Diagnosis [facility] Outpatient [address], [place] [id number] 06/10/2024 Kenney Carrasco Jr Colon cancer screening Z12.11 ; Gastric intestinal metaplasia K31.A0 and Chronic GERD K21.9 [facility] [address] [place] [phone] 06/01/2024 Kenney Carrasco Jr Gastroesophageal reflux disease, unspecified whether esophagitis present K21.9 ; Gastric intestinal metaplasia K31.A0 and Colon cancer screening Z12.11 [facility] [address] [place] [phone] 06/07/2024 Kenney Carrasco Jr [facility] [address] [place] [phone] 06/15/2024 Kenney Carrasco Jr Assessments Encounter Date Diagnosis (ICD Code) Assessment Notes Treatment Notes Treatment Clinical Notes Section Notes 06/10/2024 Colon cancer screening (ICD-10 - Z12.11) 06/10/2024 Gastric intestinal metaplasia (ICD-10 - K31.A0) 06/01/2024 Gastroesophageal reflux disease, unspecified whether esophagitis present (ICD-10 - K21.9) We discussed gastroesophageal reflux disease today. We discussed diet, lifestyle modifications, and weight management. Given his longstanding history of gastroesophageal reflux disease and prior history of gastric intestinal metaplasia we have recommended upper endoscopy. This will be arranged. He will continue omeprazole. He is due for colorectal cancer screening. This will be arranged. He understands risks and benefits and agrees to proceed. 06/01/2024 Gastric intestinal metaplasia (ICD-10 - K31.A0) We discussed gastroesophageal reflux disease today. We discussed diet, lifestyle modifications, and weight management. Given his longstanding history of gastroesophageal reflux disease and prior history of gastric intestinal metaplasia we have recommended upper endoscopy. This will be arranged. He will continue omeprazole. He is due for colorectal cancer screening. This will be arranged. He understands risks and benefits and agrees to proceed. 06/01/2024 Colon cancer screening (ICD-10 - Z12.11) Endoscopy material was printed We discussed gastroesophageal reflux disease today. We discussed diet, lifestyle modifications, and weight management. Given his longstanding history of gastroesophageal reflux disease and prior history of gastric intestinal metaplasia we have recommended upper endoscopy. This will be arranged. He will continue omeprazole. He is due for colorectal cancer screening. This will be arranged. He understands risks and benefits and agrees to proceed. 06/10/2024 Chronic GERD (ICD-10 - K21.9) Plan Of Treatment Future Test Test Name Order Date UPPER GI ENDOSCOPY 12/22/2012 COLONOSCOPY 12/22/2013 UPPER GI ENDOSCOPY 06/01/2024 COLONOSCOPY 06/01/2024 Next Appt Details Provider Name:Kenney escobar , 06/22/2025 01:35:00 PM, [address] [place] [address], [address], [place], [phone], Insurance Providers Payer Name Payer Address Payer Phone Subscriber Number Group Number Insured Name Patient Relationship to Insured Coverage Start Date Coverage End Date [facility] [address] [place] [phone] [id number] RUTH COVARRUBIAS Self - patient is the insured Medical (General) History Medical History History ICD Code Hyperlipidemia gastroesophageal reflux disease (GERD) COVID infection in the past
[2025-02-02 11:13] LABS: Alanine Aminotransferase 81 U/L (0-40); Albumin Level 4.5 g/dL (3.5-5.0); Alkaline Phosphatase 42 U/L (39-117); Anion Gap 11 (12-20); Aspartate Amino Transferase 48 U/L (5-37); Blood Urea Nitrogen 18 mg/dL (9-16); Calcium 8.8 mg/dL (8.4-10.2); Carbon Dioxide 24 mmol/L (22-29); Chloride 106 mmol/L (96-108); Cholesterol 249 mg/dL (<200); Estimated Glomerular Filt Rate > 60; HDL Cholesterol 32 mg/dL (>40); Potassium 4.0 mmol/L (3.3-5.1); Sodium 137 mmol/L (135-145); Total Protein 7.4 g/dL (6.5-8.0); Triglycerides 269 mg/dL (<150)
== END 2025-02-02 06:06 | disposition home or self-care (01) ==
LOC: HO.HMGCLDS 06:05
PROVIDERS: PCP Nurse Practitioner Family; Visit Provider Nurse Practitioner Family
DX: E78.5 Hyperlipidemia, unspecified (principal)
CPT/HCPCS: 36415; 80053; 80061

== ENCOUNTER 2025-02-06 15:23 | Outpatient (AMB) | payer OTHER, SELFPAY ==
--- OUTSIDE RECORDS SUMMARY | 2024-06-10 06:20 | XMS_ITS ---
Author Organization [facility] Address [address] [place] [address] [place] [address] Care Team Providers Care Buoy Tender Name Role Phone LUISSTEVE SRAVAN Primary Care Provider Subhash Carrasco Jr, Kenney Lance REASON FOR VISIT gerd,screening, gastric instestinal metaplasia Encounters Encounter Location Date Provider Diagnosis [facility] [address] [place] [phone] 06/10/2024 Kenney Carrasco Jr Colon cancer screening [...] Name:Kenney escobar Jr, 06/22/2025 01:35:00 PM, [address] [facility], [address], [place], [address], Progress Notes * RUTH COVARRUBIASDOB: [birth year] (59 yo M)Acc No.[id number]:06/10/2024 EGD and COL/MAC Patient: RUTH CHAU Provider: David Carrasco MD :1965 A ge:58 Y S ex:Male Date:06/10/2024 Address:[address] [place] [address], [place] Pcp:SRAVAN DUTTA Subjective: * Chief Complaints: * G erd,screening, gastric instestinal metaplasia Assessment: * Assessment: 1. C olon cancer screening - Z12.11 (Primary) 2 . G astric intestinal metaplasia - K31.A0 3 . C hronic GERD - K21.9 Plan: * Procedure Codes: 4 5378 DIAGNOSTIC [id number] UPPER GI ENDOSCOPY, BIOPSY Billing Information: * Procedure Codes: 94480 DIAGNOSTIC COLONOSCOPY. 83232 UPPER GI ENDOSCOPY, BIOPSY. * The named appointment provid er may or may not be the originator of this progress note, and it is not deemed complete until electronically signed by the appointment provider. Sign off status: Pending * Provider: David Carrasco MD Date: 0 06/10/2024 Generated for Kinsey fonseca/Sofiya/Jenniferitting on: 1 04/09/2024 06:26 PM EST
[2025-02-06 15:27] VITALS: BP 130/90; PULSE 104; RESP 16; TEMP 36.9; O2SAT 96; BMI 35.2
--- NOTE | 2025-02-06 15:27 | A.OFFPC_ITS ---
Vital Signs 02/06/25 15:27 02/06/25 16:06 Height 5 ft 10 in Weight 245 lb BMI 35.2 BP 130/90 H 140/100 H Blood Pressure Location Rt brachial Lt brachial Position Sitting Sitting Respiration 16 Pulse 104 H Temp 98.4 F Temp Source Oral Pulse Oximetry (%) 96 Oxygen Delivery Method Room Air Intake Visit Reasons: 6m follow up Clinical Office Technician Required: No Accompanied by: Self / Same As Patient Allergies lisinopril Allergy (Unknown, Verified 08/03/24 14:17) left arm tingly Tobacco use date assessed: 02/06/25 Dental Screening Dental Screen Date: 02/06/25 Did you have a dental visit in the last 12 months?: Yes Did you have a dental problem in the last 6 months where you did not have access to dental care?: No Was dental information given to patient?: Patient has dentist HPI 6m follow up HPI Details Chief Complaint The patient presents for a follow-up visit for dyslipidemia and elevated liver enzymes. History of Present Illness The patient is a 59 year old male presenting for follow-up for dyslipidemia and elevated liver enzymes. His treatment regimen for dyslipidemia includes Repatha, ezetimibe, and citrus bergamot. He reports not taking Repatha every two weeks as prescribed, and there has not been a significant drop in his cholesterol and LDL levels. His medical history is significant for elevated liver enzymes, which are trending down but remain elevated. He has a history of coronary artery disease diagnosed via a past CT scan and does not tolerate statins. The patient is also morbidly obese. Social History - Diet: He is working on his diet. Health Maintenance - Cardiovascular disease prevention: Ferny uriostegui start baby aspirin once a day. - Diet: Advised to continue working on h is diet. Review of Systems - Cardiovascular: Denies chest pain. - Respiratory: Denies shortness of breat h. - Neurological: Denies dizziness and hea dache. - Eyes: Denies blurred vision. Physical Exam General: Cooperative, healthy appearing, comfortable, no acute distress and well developed Orientation: Patient oriented x3 Limitations: No limitations Head: Normal to inspection Ears: Hearing grossly normal bilaterally Nose: Normal external nose present Face and sinus: Normal facial exam Eyes: Appearance normal, both eyes and all related structures Neck: Normal visual inspection and Yes full ROM Respiratory: Normal respiratory effort and able to speak in complete sentences. Clear to auscultation bilaterally Cardiovascular: Regular rate and rhythm. Normal S1 and S2 GI: Normal to inspection. Soft to palpation and nontender Skin: No rashes or lesions noted Neuro: Patient oriented x3 Extremities: Normal to inspection Results - Labs: His liver enzymes are trending d ownward but remain elevated. - Labs: Cholesterol and LDL levels have not shown a significant decrease. - Imaging: A past CT scan revealed coron [place] artery disease. Plan 1. Dyslipidemia The importance of adhering to the prescribed Repatha every two weeks was emphasized to manage his cholesterol and LDL levels. He will continue taking ezetimibe and citrus bergamot. He will repeat labs in two months for reassessment. 2. Elevated Liver Enzymes Although his liver enzymes are trending down, they are still elevated. This will be monitored with repeat labs in two months. 3. Coronary Artery Disease Given his history of coronary artery disease and statin intolerance, he will start taking baby aspirin once a day for secondary prevention. 4. Morbid Obesity He was advised to continue working on his diet to address his morbid obesity. 5. HTN: starting losartan, will cont to monitor BP (portal) Discussion Notes I discussed the patient's lab results, noting his liver enzymes are trending down, though still elevated. I emphasized the importance of taking his Repatha every two weeks as prescribed, as his cholesterol and LDL levels have not significantly improved due to non-adherence. Given his history of coronary artery disease and statin intolerance, I recommended starting baby aspirin once daily. We agreed he would continue to work on his diet and repeat labs in two months for follow-up. HTN: up in office. reports systolically better at home, though diastolically, up in the higher 80s to 90s. Patient Instructions - Take your Repatha injection every two weeks, as this is very important for lowering your cholesterol. - Continue to take your other medication s, including ezetimibe and citrus bergamot, as directed. - Begin taking one baby aspirin every da y. - Continue your efforts to improve your diet. - You will need to have blood tests done again in two months to check your progress. [facility] Medical History PAC (premature atrial contraction) Hyperlipidemia GERD (gastroesophageal reflux disease) Coronary artery calcification Cough Post covid-19 condition, unspecified Surgical History History of esophagogastroduodenoscopy (EGD) H/O colonoscopy Social History Household Members: Spouse Housing: House Patient Tobacco Use Status: Never used Tobacco e-Cigarette/Vaping Use: Never Used Second Hand Smoke Exposure: Yes service: No Current occupational status: employed Current occupation: [employer] Current occupational exposures/hazards: Yes Cognitive needs: No Hearing needs: No Vision needs: No Questionnaire Thrive Questionnaire Date Thrive assessed: 08/03/24 I am a: Patient What is your living situation today?: I have a steady place to live Within the past 12 months, did the food you bought not last and you didn't have the money to get more?: Never true Within the past 12 months, did you worry whether your food would run out before you got money to buy more?: Never true Do you have trouble paying for medicines?: No Do you have trouble getting transportation to medical appointments?: No Do you have trouble paying your heating and electricity bill?: No Do you have trouble taking care of your child, family member or friend?: No Do you have trouble with day-to-day activities such as bathing, preparing meals, shopping, managing finances, etc.?: No Are you currently unemployed and looking for a job?: No Are you interested in more education?: No Please select the resources that you would like help with: None Currently or been in a relationship where the following occur: No concerns reported THRIVE Score: 0 FARHAD-7 AMB Questionnaire FARHAD-7 Date FARHAD - 7 assessed: 08/03/24 Source: Developed by Drs. Marcial Braxton, Felicia Rubalcava, Armando Ennis and colleagues, with an educational jordi from [employer]. Physical exam (Primary Care) Vital Signs: Last Vital Signs Temp 98.4 F 02/06/25 15:27 Pulse 104 H 02/06/25 15:27 Resp 16 02/06/25 15:27 BP 130/90 H 02/06/25 15:27 Pulse Ox 96 02/06/25 15:27 Oxygen Delivery Method Room Air 12/22/25 15:27 BMI result Body Mass Index 35.2 Tobacco/Smoking Status: Tobacco use Status Tobacco use date assessed 02/06/25 02/06/25 15:33 Patient Tobacco Use Status Never used Tobacco 02/06/25 15:33 e-Cigarette/Vaping Use Never Used 02/06/25 15:33 Thrive Assessment: Date of Thrive Assessment Date Thrive assessed 08/03/24 02/06/25 15:33 Currently or been in a relationship where the following occur: No concerns reported Coding Level of Care Code Est Pt Level 4 (45958) Diagnoses Elevated liver enzymes R74.8 Dyslipidemia E78.5 Fatty liver K76.0 HTN (hypertension) I10 Assessment & Plan Assessment & Plan (1) Elevated liver enzymes: Code(s): R74.8 - Abnormal levels of other serum enzymes Category: Medical (2) Dyslipidemia: Code(s): E78.5 - Hyperlipidemia, unspecified Category: Medical (3) Fatty liver: Code(s): K76.0 - Fatty (change of) liver, not elsewhere classified Category: Medical (4) HTN (hypertension): Code(s): I10 - Essential (primary) hypertension Category: Medical Plan . Orders: Orders Complete Blood Count Auto Diff 2 Months E78.5 - Hyperlipidemia, unspecified, R74.8 - Abnormal levels of other serum enzymes Comprehensive [place]. Panel Fast 2 Months E78.5 - Hyperlipidemia, unspecified, R74.8 - Abnormal levels of other serum enzymes Lipid Panel 2 Months E78.5 - Hyperlipidemia, unspecified, R74.8 - Abnormal levels of other serum enzymes Medications: New losartan 25 mg PO DAILY 90 tabs 0RF
[2025-02-06 16:06] VITALS: BP 140/100
--- OUTSIDE RECORDS SUMMARY | 2025-02-06 18:27 | XMS_ITS | Patient Health Record ---
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 Problems Problem Type SNOMED Code ICD Code Onset Dates Problem Status W/U Status Risk Notes Problem Esophageal reflux (104634671) Esophageal reflux (530.81) Active confirmed Problem Rectal bleeding (82229980) Rectal bleeding (569.3) Active confirmed Problem Gastroesophageal reflux disease (412113245) Gastroesophageal reflux disease, unspecified whether esophagitis present (K21.9) Active confirmed Vital Signs Temperature 98.0 degrees Fahrenheit 06/01/2024 Blood pressure diastolic 01 mm Hg 06/01/2024 Height 70 in 06/01/2024 Blood pressure systolic 001 mm Hg 06/01/2024 Weight 249.2 lbs 06/01/2024 BMI 35.75 kg/m2 06/01/2024 Encounters Encounter Location Date Provider Diagnosis [facility] [facility] [address] [place] [id number] 06/10/2024 Kenney Carrasco Jr Colon cancer screening Z12.11 ; Gastric intestinal metaplasia K31.A0 and Chronic GERD K21.9 [facility] [address] [place] [phone] 06/01/2024 Kenney Carrasco Jr Gastroesophageal reflux disease, unspecified whether esophagitis present K21.9 ; Gastric intestinal metaplasia K31.A0 and Colon cancer screening Z12.11 [facility] [address] [place] [id number] 06/07/2024 Kenney Carrasco Jr [facility] [address] [place] [phone] 06/15/2024 Kenney Carrasco Jr Assessments Encounter Date [...] Provider Name:Kenney escobar , 06/22/2025 01:35:00 PM, [address] [place] [address], [address], [place], [phone], Insurance Providers Payer Name Payer Address Payer Phone Subscriber Number Group Number Insured Name Patient Relationship to Insured Coverage Start Date Coverage End Date [facility] [address] [place] [phone] [id number] RUTH COVARRUBIAS Self - patient is the insured Medical (General) History Medical History History ICD Code Hyperlipidemia gastroesophageal reflux disease (GERD) COVID infection in the past
--- OUTSIDE RECORDS SUMMARY | 2025-02-06 18:27 | XMS_ITS | Clinical Summary ---
Author Organization [facility] Prior to 07/16/[address] [place] [id number] Care Team Providers Care Rn Transfer Name Role Phone Unavailable Primary Care Provider Unavailabl e Social History Tobacco Use Types Packs/Day Years Used Date Smoking Tobacco: Never Assessed Sex and Gender Information Value Date Recorded Sex Assigned at Not on file Gender Identity Not on file Sexual Orientation Not on file Plan of Treatment Not on file
== END 2025-02-06 16:23 | disposition home or self-care (01) ==
LOC: HO.HMCC 15:24
PROVIDERS: PCP Nurse Practitioner Family; Visit Provider Nurse Practitioner Family
DX: R74.8 Abnormal levels of other serum enzymes (principal); E78.5 Hyperlipidemia, unspecified; K76.0 Fatty (change of) liver, not elsewhere classified; I10 Essential (primary) hypertension

== ENCOUNTER → 2025-02-06 15:23 | Outpatient (BNVA) | payer OTHER, SELFPAY | PROVIDERS: PCP Nurse Practitioner Family; Visit Provider Nurse Practitioner Family | DX: I10 Essential (primary) hypertension (principal); R74.8 Abnormal levels of other serum enzymes; E78.5 Hyperlipidemia, unspecified; K76.0 Fatty (change of) liver, not elsewhere classified | CPT/HCPCS: 99212 ==